=== PATIENT | female | born 1995 | race Caucasian/White ===

== ENCOUNTER 2016-06-26 16:23 | Emergency (ER) | payer OTHER ==
[2016-06-26] MEDS ORDERED: IBUPROFEN 400 MG TAB As Ordered ONE ×2 (18:28→18:32)
[2016-06-26] MEDS ORDERED: ACETAMINOPHEN 325 MG TAB As Ordered ONE ×2 (18:29→18:32)
--- NOTE | 2016-06-26 19:43 | EDDOCDS ---
Nurse's Notes [facility] Name: Aurora Healy Age: 21 yrs Sex: Female : 1995 Arrival Date: 06/26/2016 Time: 16:23 Bed TR7 Private MD: Diagnosis: Acute bronchitis Presentation: 06/26 16:31 Presenting complaint: Patient states: pt c/o productive cough x 2 days. Adult Sepsis ead Screening: The patient does not have new or worsening altered mentation. Patient's respiratory rate is less than 22. Systolic blood pressure is greater than 100. Patient has a qSOFA score of 0- Negative Sepsis Screen. Suicide/Homicide risk assessment- the patient denies having any suicidal and/or homicidal ideations and does not present with any other emotional, behavioral or mental health complaints. Status: Patient is not a procurement services manager or dependent. Transition of care: patient was not received from another setting of care. 16:31 Acuity: JENNIFER Level 4 ead 16:31 Method Of Arrival: Walkin/Carried/Asstd ead Triage Assessment: 16:33 General: Appears in no apparent distress, Behavior is appropriate for age, cooperative. ead Pain: Location: chest Pain currently is 8 out of 10 on a pain scale. Neurological: No deficits noted. Respiratory: Airway is patent Respiratory effort is even, unlabored, Reports cough that is pain with cough. Derm: Skin is pink, warm & dry. 19:26 Pt Declines HIV testing. 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 none - PMHx: none; - PSHx: none; - Social history: Smoking status: Patient states was never smoker of tobacco. No barriers to communication noted, The patient speaks fluent Romanian, Speaks appropriately for age. - Family history: Not pertinent. - : The pt / caregiver states he / she is not on anticoagulants. Home medication list is obtained from the patient. - Exposure Risk Screening:: None identified. Screenin:41 Screening information is obtained from the patient. Fall risk: No risks identified. dsf Assistance ADL's: requires no assistance with activities of daily living. Abuse/DV Screen: The patient / caregiver reports he/she is: not in a situation that causes fear, pain or injury. Nutritional screening: No deficits noted. Advance Directives: Currently, there is no health care proxy. home support is adequate. Assessment: 19:26 Adult Sepsis Screening: The patient does not have new or worsening altered mentation. dsf Patient's respiratory rate is less than 22. Systolic blood pressure is greater than 100. Patient has a qSOFA score of 0- Negative Sepsis Screen. General: Appears in no apparent distress, Behavior is appropriate for age, cooperative. Pain: Location: chest Pain currently is 6 out of 10 on a pain scale. Neurological: Level of Consciousness is awake, alert. Cardiovascular: Capillary refill < 3 seconds. Respiratory: Airway is patent Respiratory effort is even, unlabored, Respiratory pattern is regular, symmetrical. Derm: Skin is pink, warm & dry. Vital Signs: 16:24 BP 116 / 73; Pulse 107; Resp 19; Temp 101.1(O); Pulse Ox 99% on R/A; Weight 57.61 kg lr2 (R); Height 5 ft. (152.40 cm) (R); Pain 3/10; 19:18 Temp 99.0(O); dsf 19:26 BP 108 / 59; Pulse 91; Resp 20; Pulse Ox 98% on R/A; Pain 6/10; dsf 16:24 Body Mass Index 24.80 (57.61 kg, 152.40 cm) lr2 Vitals: 16:24 Log In Time: June 26, 2016 at 16:23. lr2 ED Course: 16:24 Patient visited by Mariola Meeks. lr2 16:24 Patient moved to Waiting lr2 16:26 Patient moved to Pre RCE lr2 16:32 Triage Initiated ead 18:03 Patient moved to Triage 3 ar3 18:12 [facility]-C [facility] ck7 18:12 Moy Roman MD is Attending Physician. ck7 18:12 Patient visited by Jerald Carlson RPA-C. ck7 18:31 -Influenza A&B Rapid Antigen - Nose Sent. ar3 18:34 Patient moved to TR2 dsf 18:46 Patient visited by Jerald Carlson RPA-C. ck7 19:16 Patient visited by Jerald Carlson RPA-C. ck7 19:16 Patient moved to PR1 / 25 dsf 19:26 Patient moved to TR7 dsf 19:26 The patient / caregiver is instructed regarding the plan of care and ED course. dsf 19:26 No IV's were initiated during this patient's visit. No procedures done that require dsf assistance. Administered Medications: 18:34 Drug: Ibuprofen 400 mg [ibuprofen 400 mg tablet (1 tabs)] Route: PO; dsf 18:34 Drug: Acetaminophen 650 mg [acetaminophen 325 mg tablet (2 tabs)] Route: PO; dsf Order Results: Lab Order: -Influenza A&B Rapid Antigen - Nose; SPEC'M 06/26/16 18:31 Test: INFLUENZA A RAPID SCR by ICA; Value: INFLUENZA A RESULTS NEGATIVE; Status: F Test: INFLUENZA A RAPID SCR by ICA; Value: Comments:; Status: F Test: INFLUENZA B RAPID SCR by ICA; Value: INFLUENZA B RESULTS NEGATIVE; Status: F Test Note: ; The Influenza test is a direct rapid immunoassay for the qualitative detection of Influenza viral antigen. Cell culture (Viral Culture) testing should be considered to confirm NEGATIVE results and to assist in detecting other viruses that can provide similar clinical symptoms. Please contact the lab within 24 hours ([phone]) if confirmatory testing is desired. Outcome: 19:19 Discharge ordered by Provider. ck7 19:26 Discharge Assessment: Patient awake, alert and oriented x 3. No cognitive and/or dsf functional deficits noted. Patient verbalized understanding of disposition instructions. patient administered narcotics - no. The following High Risk Discharge criteria are identified: None. Discharged to home ambulatory. Condition: stable. Discharge instructions given to patient, Instructed on discharge instructions, follow up and referral plans. medication usage, Demonstrated understanding of instructions, medications, Pt was receptive of discharge instructions/ teaching. Prescriptions given X 2. No special radiology studies were completed. Property sent home with patient. 19:43 Patient left the ED. dsf Signatures: Joan oHu, SIGNALS INTELLIGENCE ANALYST SIGNALS INTELLIGENCE ANALYST ar3 Quin Ortega RN RN dsf Jerald Carlson, RPA-C RPA-Cck7 Dulce Resendez RN RN ead Ross, Laura lr2 MTDD
--- NOTE | 2016-06-26 19:43 | EDDOCDS ---
Physician Documentation [facility] Name: Aurora Healy Age: 21 yrs Sex: Female : 1995 Arrival Date: 06/26/2016 Time: 16:23 Bed TR7 Private MD: Disposition: 06/26/16 19:19 Discharged to Home/Self Care. Impression: Acute bronchitis. - Condition is Stable. - Discharge Instructions: Acute Bronchitis. - Prescriptions for Doxycycline Hyclate 100 mg Oral Tablet - take 1 tablet by ORAL route every 12 hours; 20 tablet. benzonatate 200 mg Oral Capsule - take 1 capsule by ORAL route 3 times per day As needed; 30 capsule. - Medication Reconciliation, Local Pharmacy Hours form. - Follow up: Private Physician; When: 2 - 3 days; Reason: Recheck today's complaints, Continuance of care. - Problem is new. - Symptoms have improved. - Notes: USE MEDICATIONS INSTRUCTED, USE TYLENOL OR MOTRIN FOR FEVER CONTROL, FOLLOW UP WITH YOUR DOCTOR IN 2-3 DAYS, RETURN TO THE ER IF THE SYMPTOMS WORSEN OR BECOME CONCERNING Historical: - Allergies: Amoxicillin; - Home Meds: 1. none - PMHx: none; - PSHx: none; - Social history: Smoking status: Patient states was never smoker of tobacco. No barriers to communication noted, The patient speaks fluent [place], Speaks appropriately for age. - Family history: Not pertinent. - : The pt / caregiver states he / she is not on anticoagulants. Home medication list is obtained from the patient. - Exposure Risk Screening:: None identified. 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 (152.40 cm) (R); Pain 3/10; 19:18 Temp 99.0(O); dsf 19:26 BP 108 / 59; Pulse 91; Resp 20; Pulse Ox 98% on R/A; Pain 6/10; dsf 16:24 Body Mass Index 24.80 (57.61 kg, 152.40 cm) lr2 MDM: 17:56 Chest, 2 View (pa\E\lat) Ordered. EDMS 18:26 Ibuprofen 400 mg PO once ordered. ck7 18:26 Acetaminophen Tablet 650 mg PO once ordered. ck7 18:26 Obtain sample by nasopharyngeal swab ordered. ck7 18:27 -Influenza A&B Rapid Antigen - Nose Ordered. EDMS 18:39 Financial registration complete. gjb 19:08 -Influenza A&B Rapid Antigen - Nose Reviewed. ck7 19:17 Recheck Vital Signs, perform reassessment and enter into [employer] ordered. ck7 Administered Medications: 18:34 Drug: Ibuprofen 400 mg [ibuprofen 400 mg tablet (1 tabs)] Route: PO; dsf 18:34 Drug: Acetaminophen 650 mg [acetaminophen 325 mg tablet (2 tabs)] Route: PO; dsf Signatures: Dispatcher [employer] EDQuin Liu,RN RN dsJerald Gallardo, RPA-C RPA-Cck7 Dulce Resendez,RN RN Justine Quintana MTDD
--- NOTE | 2016-06-27 06:39 | REP ---
Chest x-ray: Two views. History: Cough. Findings: The lungs are well inflated and clear. Pleural angles are sharp. Heart size is normal. No significant bony abnormality is seen. Impression: Negative chest x-ray. Signed by Mian Warren MD 06/27/2016 08:29 A
--- NOTE | 2016-06-28 20:44 | EDDOCDS ---
Physician Documentation [facility] Name: Aurora Healy Age: 21 yrs Sex: Female : 1995 Arrival Date: 06/26/2016 Time: 16:23 Bed TR7 Private MD: Disposition: 06/26/16 19:19 Discharged to Home/Self Care. Impression: Acute bronchitis. - Condition is Stable. - Discharge Instructions: Acute Bronchitis. - Prescriptions for Doxycycline Hyclate 100 mg Oral Tablet - take 1 tablet by ORAL route every 12 hours; 20 tablet. benzonatate 200 mg Oral Capsule - take 1 capsule by ORAL route 3 times per day As needed; 30 capsule. - Medication Reconciliation, Local Pharmacy Hours form. - Follow up: Private Physician; When: 2 - 3 days; Reason: Recheck today's complaints, Continuance of care. - Problem is new. - Symptoms have improved. - Notes: USE MEDICATIONS INSTRUCTED, USE TYLENOL OR MOTRIN FOR FEVER CONTROL, FOLLOW UP WITH YOUR DOCTOR IN 2-3 DAYS, RETURN TO THE ER IF THE SYMPTOMS WORSEN OR BECOME CONCERNING Historical: - Allergies: Amoxicillin; - Home Meds: 1. none - PMHx: none; - PSHx: none; - Social history: Smoking status: Patient states was never smoker of tobacco. No barriers to communication noted, The patient speaks fluent [place], Speaks appropriately for age. - Family history: Not pertinent. - : The pt / caregiver states he / she is not on anticoagulants. Home medication list is obtained from the patient. - Exposure Risk Screening:: None identified. 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 (152.40 cm) (R); Pain 3/10; 19:18 Temp 99.0(O); dsf 19:26 BP 108 / 59; Pulse 91; Resp 20; Pulse Ox 98% on R/A; Pain 6/10; dsf 16:24 Body Mass Index 24.80 (57.61 kg, 152.40 cm) lr2 MDM: 17:56 Chest, 2 View (pa\E\lat) Ordered. EDMS 18:26 Ibuprofen 400 mg PO once ordered. ck7 18:26 Acetaminophen Tablet 650 mg PO once ordered. ck7 18:26 Obtain sample by nasopharyngeal swab ordered. ck7 18:27 -Influenza A&B Rapid Antigen - Nose Ordered. EDMS 18:39 Financial registration complete. gjb 19:08 -Influenza A&B Rapid Antigen - Nose Reviewed. ck7 19:17 Recheck Vital Signs, perform reassessment and enter into [employer] ordered. ck7 20:42 [facility] Payment Agreement was scanned into [employer] and attached to record. gjb Administered Medications: 18:34 Drug: Ibuprofen 400 mg [ibuprofen 400 mg tablet (1 tabs)] Route: PO; dsf 18:34 Drug: Acetaminophen 650 mg [acetaminophen 325 mg tablet (2 tabs)] Route: PO; dsf Signatures: Dispatcher [employer] EDuQin Liu RN RN dsf Kwaczala, Christopher, RPA-C RPA-Cck7 Dulce ResendezRN Justine King The chart was reviewed and I authenticate all verbal orders and agree with the evaluation and treatment provided.Attachments: 20:42 [facility] Payment Agreement gjb Chart Complete MTDD
--- NOTE | 2016-06-28 20:44 | EDDOCDS ---
Nurse's Notes [facility] Name: Aurora Healy Age: 21 yrs Sex: Female : 1995 Arrival Date: 06/26/2016 Time: 16:23 Bed TR7 Private MD: Diagnosis: Acute bronchitis Presentation: 06/26 16:31 Presenting complaint: Patient states: pt c/o productive cough x 2 days. Adult Sepsis ead Screening: The patient does not have new or worsening altered mentation. Patient's respiratory rate is less than 22. Systolic blood pressure is greater than 100. Patient has a qSOFA score of 0- Negative Sepsis Screen. Suicide/Homicide risk assessment- the patient denies having any suicidal and/or homicidal ideations and does not present with any other emotional, behavioral or mental health complaints. Status: Patient is not a service order taker or dependent. Transition of care: patient was not received from another setting of care. 16:31 Acuity: JENNIFER Level 4 ead 16:31 Method Of Arrival: Walkin/Carried/Asstd ead Triage Assessment: 16:33 General: Appears in no apparent distress, Behavior is appropriate for age, cooperative. ead Pain: Location: chest Pain currently is 8 out of 10 on a pain scale. Neurological: No deficits noted. Respiratory: Airway is patent Respiratory effort is even, unlabored, Reports cough that is pain with cough. Derm: Skin is pink, warm & dry. 19:26 Pt Declines HIV testing. 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 none - PMHx: none; - PSHx: none; - Social history: Smoking status: Patient states was never smoker of tobacco. No barriers to communication noted, The patient speaks fluent Spanish, Speaks appropriately for age. - Family history: Not pertinent. - : The pt / caregiver states he / she is not on anticoagulants. Home medication list is obtained from the patient. - Exposure Risk Screening:: None identified. Screenin:41 Screening information is obtained from the patient. Fall risk: No risks identified. dsf Assistance ADL's: requires no assistance with activities of daily living. Abuse/DV Screen: The patient / caregiver reports he/she is: not in a situation that causes fear, pain or injury. Nutritional screening: No deficits noted. Advance Directives: Currently, there is no health care proxy. home support is adequate. Assessment: 19:26 Adult Sepsis Screening: The patient does not have new or worsening altered mentation. dsf Patient's respiratory rate is less than 22. Systolic blood pressure is greater than 100. Patient has a qSOFA score of 0- Negative Sepsis Screen. General: Appears in no apparent distress, Behavior is appropriate for age, cooperative. Pain: Location: chest Pain currently is 6 out of 10 on a pain scale. Neurological: Level of Consciousness is awake, alert. Cardiovascular: Capillary refill < 3 seconds. Respiratory: Airway is patent Respiratory effort is even, unlabored, Respiratory pattern is regular, symmetrical. Derm: Skin is pink, warm & dry. Vital Signs: 16:24 BP 116 / 73; Pulse 107; Resp 19; Temp 101.1(O); Pulse Ox 99% on R/A; Weight 57.61 kg lr2 (R); Height 5 ft. (152.40 cm) (R); Pain 3/10; 19:18 Temp 99.0(O); dsf 19:26 BP 108 / 59; Pulse 91; Resp 20; Pulse Ox 98% on R/A; Pain 6/10; dsf 16:24 Body Mass Index 24.80 (57.61 kg, 152.40 cm) lr2 Vitals: 16:24 Log In Time: June 26, 2016 at 16:23. lr2 ED Course: 16:24 Patient visited by Mariola Meeks. lr2 16:24 Patient moved to Waiting lr2 16:26 Patient moved to Pre RCE lr2 16:32 Triage Initiated ead 18:03 Patient moved to Triage 3 ar3 18:12 [facility]erald Carlson R[facility]-C [facility] ck7 18:12 Moy Roman MD is Attending Physician. ck7 18:12 Patient visited by Jerald Carlson RPA-C. ck7 18:31 -Influenza A&B Rapid Antigen - Nose Sent. ar3 18:34 Patient moved to TR2 dsf 18:46 Patient visited by Jerald Carlson RPA-C. ck7 19:16 Patient visited by Jerald Carlson RPA-C. ck7 19:16 Patient moved to PR1 / 25 dsf 19:26 Patient moved to TR7 dsf 19:26 The patient / caregiver is instructed regarding the plan of care and ED course. dsf 19:26 No IV's were initiated during this patient's visit. No procedures done that require dsf assistance. 20:04 Patient name changed from [place]\S\\S\[place]\S\ to [place]\S\ \S\[place]oot[place]. EDMS 20:42 [facility] Payment Agreement was scanned into [employer] and attached to record. [facility] 06/27 06:44 Chest, 2 View (pa\E\lat) Returned. EDMS Administered Medications: 06/26 18:34 Drug: Ibuprofen 400 mg [ibuprofen 400 mg tablet (1 tabs)] Route: PO; dsf 18:34 Drug: Acetaminophen 650 mg [acetaminophen 325 mg tablet (2 tabs)] Route: PO; dsf Order Results: Lab Order: -Influenza A&B Rapid Antigen - Nose; SPEC'M 06/26/16 18:31 Test: INFLUENZA A RAPID SCR by ICA; Value: INFLUENZA A RESULTS NEGATIVE; Status: F Test: INFLUENZA A RAPID SCR by ICA; Value: Comments:; Status: F Test: INFLUENZA B RAPID SCR by ICA; Value: INFLUENZA B RESULTS NEGATIVE; Status: F Test Note: ; The Influenza test is a direct rapid immunoassay for the qualitative detection of Influenza viral antigen. Cell culture (Viral Culture) testing should be considered to confirm NEGATIVE results and to assist in detecting other viruses that can provide similar clinical symptoms. Please contact the lab within 24 hours ([phone]) if confirmatory testing is desired. Radiology Order: Chest, 2 View (pa\E\lat) Test: Chest, 2 View (pa\E\lat) REASON FOR EXAMINATION: Cough; Chest x-ray: Two views.; ; History: Cough.; ; Findings: The lungs are well inflated and clear. Pleural angles are sharp.; Heart size is normal. No significant bony abnormality is seen.; ; Impression:; ; Negative chest x-ray.; ; ; Signed by; Mian Warren MD 06/27/2016 08:29 A; Outcome: 19:19 Discharge ordered by Provider. ck7 19:26 Discharge Assessment: Patient awake, alert and oriented x 3. No cognitive and/or dsf functional deficits noted. Patient verbalized understanding of disposition instructions. patient administered narcotics - no. The following High Risk Discharge criteria are identified: None. Discharged to home ambulatory. Condition: stable. Discharge instructions given to patient, Instructed on discharge instructions, follow up and referral plans. medication usage, Demonstrated understanding of instructions, medications, Pt was receptive of discharge instructions/ teaching. Prescriptions given X 2. No special radiology studies were completed. Property sent home with patient. 19:43 Patient left the ED. dsf Signatures: Dispatcher [employer] EDMS Joan Hou, COMPUTER SUPPORT ANALYST COMPUTER SUPPORT ANALYST ar3 Quin Ortega,RN RN dsf Jerald Carlson, RPA-C RPA-Cck7 Dulce Resendez,RN RN Justine Quintana Laura lr2 Chart Complete DIVYA
--- NOTE | 2016-06-28 20:44 | EDDOCDS ---
Physician Documentation [facility] Name: Aurora Healy Age: 21 yrs Sex: Female : 1995 Arrival Date: 06/26/2016 Time: 16:23 Bed TR7 Private MD: Disposition: 06/26/16 19:19 Discharged to Home/Self Care. Impression: Acute bronchitis. - Condition is Stable. - Discharge Instructions: Acute Bronchitis. - Prescriptions for Doxycycline Hyclate 100 mg Oral Tablet - take 1 tablet by ORAL route every 12 hours; 20 tablet. benzonatate 200 mg Oral Capsule - take 1 capsule by ORAL route 3 times per day As needed; 30 capsule. - Medication Reconciliation, Local Pharmacy Hours form. - Follow up: Private Physician; When: 2 - 3 days; Reason: Recheck today's complaints, Continuance of care. - Problem is new. - Symptoms have improved. - Notes: USE MEDICATIONS INSTRUCTED, USE TYLENOL OR MOTRIN FOR FEVER CONTROL, FOLLOW UP WITH YOUR DOCTOR IN 2-3 DAYS, RETURN TO THE ER IF THE SYMPTOMS WORSEN OR BECOME CONCERNING Historical: - Allergies: Amoxicillin; - Home Meds: 1. none - PMHx: none; - PSHx: none; - Social history: Smoking status: Patient states was never smoker of tobacco. No barriers to communication noted, The patient speaks fluent Martiniquais, Speaks appropriately for age. - Family history: Not pertinent. - : The pt / caregiver states he / she is not on anticoagulants. Home medication list is obtained from the patient. - Exposure Risk Screening:: None identified. 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 (152.40 cm) (R); Pain 3/10; 19:18 Temp 99.0(O); dsf 19:26 BP 108 / 59; Pulse 91; Resp 20; Pulse Ox 98% on R/A; Pain 6/10; dsf 16:24 Body Mass Index 24.80 (57.61 kg, 152.40 cm) lr2 MDM: 17:56 Chest, 2 View (pa\E\lat) Ordered. EDMS 18:26 Ibuprofen 400 mg PO once ordered. ck7 18:26 Acetaminophen Tablet 650 mg PO once ordered. ck7 18:26 Obtain sample by nasopharyngeal swab ordered. ck7 18:27 -Influenza A&B Rapid Antigen - Nose Ordered. EDMS 18:39 Financial registration complete. gjb 19:08 -Influenza A&B Rapid Antigen - Nose Reviewed. ck7 19:17 Recheck Vital Signs, perform reassessment and enter into [email or web address] ordered. ck7 20:42 [facility] Payment Agreement was scanned into [employer] and attached to record. gjb Administered Medications: 18:34 Drug: Ibuprofen 400 mg [ibuprofen 400 mg tablet (1 tabs)] Route: PO; dsf 18:34 Drug: Acetaminophen 650 mg [acetaminophen 325 mg tablet (2 tabs)] Route: PO; dsf Signatures: Dispatcher [employer] EDQuin Liu RN RN dsf Kwaczala, Christopher, RPA-C RPA-Cck7 Dulce ResendezRN Justine King The chart was reviewed and I authenticate all verbal orders and agree with the evaluation and treatment provided.Attachments: 20:42 [facility] Payment Agreement gjb Chart Complete MTDD
== END 2016-06-26 19:43 | disposition home or self-care (01) ==
LOC: M ED 16:23
DX: J20.9 Acute bronchitis, unspecified (principal); Z88.1 Allergy status to other antibiotic agents

== ENCOUNTER 2016-09-28 12:28 | Emergency (ER) | payer OTHER ==
[~2016-09-28] VITALS: Ht 152.4 cm; Wt 50.3 kg
[2016-09-28 13:59] LABS: CONTROL LINE HCG INT CTR LINE PRESENT
[2016-09-28 14:13] LABS: METHADONE URINE NEGATIVE (NEGATIVE)
[2016-09-28 14:15] LABS: MEAN CORPUSCULAR HEMOGLOBIN 32.6 pg (27.0-33.0); MEAN CORPUSCULAR VOLUME 98.7 fl (80.0-96.0); RED CELL DISTRIBUTION WIDTH 13.3 % (11.5-14.5); WHITE BLOOD COUNT 9.8 K/mm3 (4.0-10.0)
[2016-09-28 14:18] LABS: ALBUMIN 3.8 GM/DL (3.2-5.2); ALBUMIN/GLOBULIN RATIO 1.09 (1.00-1.93); ALKALINE PHOSPHATASE 33 U/L (45-117); ALT/SGPT 19 U/L (12-78); ANION GAP 9 MEQ/L (8-16); AST/SGOT 21 U/L (15-37); BILIRUBIN,DIRECT 0.2 MG/DL (0.0-0.2); BILIRUBIN,TOTAL 0.6 MG/DL (0.2-1.0); BLOOD UREA NITROGEN 13 MG/DL (7-18); CALCIUM LEVEL 9.2 MG/DL (8.5-10.1); CARBON DIOXIDE LEVEL 30 MEQ/L (21-32); CHLORIDE LEVEL 103 MEQ/L (98-107); CREATININE FOR GFR 0.87 MG/DL (0.55-1.02); GLOMERULAR FILTRATION RATE > 60.0 (>60); GLUCOSE, FASTING 77 MG/DL (70-105); POTASSIUM SERUM 4.1 MEQ/L (3.5-5.1); SODIUM LEVEL 142 MEQ/L (136-145); TOTAL PROTEIN 7.3 GM/DL (6.4-8.2)
[2016-09-28 14:50] VITALS: BP 128/74
== END 2016-09-28 14:57 | disposition home or self-care (01) ==
LOC: M ED 13:21
DX: F43.0 Acute stress reaction (principal); X78.9XXA Intentional self-harm by unspecified sharp object, initial encounter; Y92.9 Unspecified place or not applicable; Y93.9 Activity, unspecified; Y99.9 Unspecified external cause status; F17.200 Nicotine dependence, unspecified, uncomplicated; Z79.899 Other long term (current) drug therapy; Z88.0 Allergy status to penicillin

== ENCOUNTER 2016-10-05 22:40 | Emergency (ER) | payer OTHER ==
[~2016-10-05] VITALS: Ht 152.4 cm; Wt 52.2 kg
[2016-10-05 23:51] LABS: MEAN CORPUSCULAR HEMOGLOBIN 33.3 pg (27.0-33.0); MEAN CORPUSCULAR HGB CONC 33.8 g/dl (32.0-36.5); MEAN CORPUSCULAR VOLUME 98.5 fl (80.0-96.0); RED CELL DISTRIBUTION WIDTH 13.5 % (11.5-14.5); WHITE BLOOD COUNT 6.5 K/mm3 (4.0-10.0)
[2016-10-06 00:11] LABS: CONTROL LINE HCG INT CTR LINE PRESENT
[2016-10-06 00:11] LABS: METHADONE URINE NEGATIVE (NEGATIVE)
[2016-10-06 00:20] LABS: ALBUMIN 3.8 GM/DL (3.2-5.2); ALBUMIN/GLOBULIN RATIO 1.06 (1.00-1.93); ALKALINE PHOSPHATASE 33 U/L (45-117); ALT/SGPT 26 U/L (12-78); ANION GAP 8 MEQ/L (8-16); AST/SGOT 27 U/L (15-37); BILIRUBIN,DIRECT 0.2 MG/DL (0.0-0.2); BILIRUBIN,TOTAL 0.5 MG/DL (0.2-1.0); BLOOD UREA NITROGEN 12 MG/DL (7-18); CALCIUM LEVEL 8.5 MG/DL (8.5-10.1); CARBON DIOXIDE LEVEL 26 MEQ/L (21-32); CHLORIDE LEVEL 107 MEQ/L (98-107); CREATININE FOR GFR 0.81 MG/DL (0.55-1.02); GLOMERULAR FILTRATION RATE > 60.0 (>60); GLUCOSE, FASTING 71 MG/DL (70-105); POTASSIUM SERUM 3.2 MEQ/L (3.5-5.1); SODIUM LEVEL 141 MEQ/L (136-145); TOTAL PROTEIN 7.4 GM/DL (6.4-8.2)
[2016-10-06 16:27] VITALS: BP 125/72
== END 2016-10-06 16:44 | disposition home or self-care (01) ==
LOC: M ED 22:40
DX: F43.20 Adjustment disorder, unspecified (principal); F32.9 Major depressive disorder, single episode, unspecified; Z88.1 Allergy status to other antibiotic agents

== ENCOUNTER 2016-10-08 03:19 | Inpatient (IN) | payer OTHER ==
[~2016-10-08] VITALS: Ht 152.4 cm; Wt 51.6 kg
[2016-10-08 04:41] LABS: MEAN CORPUSCULAR HEMOGLOBIN 33.7 pg (27.0-33.0); MEAN CORPUSCULAR HGB CONC 34.5 g/dl (32.0-36.5); MEAN CORPUSCULAR VOLUME 97.6 fl (80.0-96.0); RED CELL DISTRIBUTION WIDTH 13.5 % (11.5-14.5); WHITE BLOOD COUNT 5.8 K/mm3 (4.0-10.0)
[2016-10-08 04:59] LABS: METHADONE URINE NEGATIVE (NEGATIVE)
[2016-10-08 05:08] LABS: CONTROL LINE HCG INT CTR LINE PRESENT
[2016-10-08 05:11] LABS: ALBUMIN 3.6 GM/DL (3.2-5.2); ALBUMIN/GLOBULIN RATIO 1.16 (1.00-1.93); ALKALINE PHOSPHATASE 31 U/L (45-117); ALT/SGPT 23 U/L (12-78); ANION GAP 12 MEQ/L (8-16); AST/SGOT 24 U/L (15-37); BILIRUBIN,DIRECT < 0.1 MG/DL (0.0-0.2); BILIRUBIN,TOTAL 0.4 MG/DL (0.2-1.0); BLOOD UREA NITROGEN 9 MG/DL (7-18); CARBON DIOXIDE LEVEL 25 MEQ/L (21-32); CHLORIDE LEVEL 107 MEQ/L (98-107); CREATININE FOR GFR 0.64 MG/DL (0.55-1.02); GLOMERULAR FILTRATION RATE > 60.0 (>60); GLUCOSE, FASTING 77 MG/DL (70-105); POTASSIUM SERUM 3.3 MEQ/L (3.5-5.1); SODIUM LEVEL 144 MEQ/L (136-145); TOTAL PROTEIN 6.7 GM/DL (6.4-8.2)
[2016-10-08] MEDS ORDERED: POTASSIUM CHLORIDE 10% LIQ 20 MEQ/15 ML UDC PO ONE (11:15)
--- NOTE | 2016-10-08 12:05 | REP ---
Two wall may see CT of the brain without IV contrast: There are no comparison studies. There is a tiny linear density in the scalp overlying the frontal bone on image 202, possibly a tiny foreign body. However, there is no adjacent soft tissue edema. This may not be acute. There is no subdural or epidural hematoma. There is no edema, mass effect or midline shift. Cortical stripe is unremarkable. Ventricles are normal size and midline. Impression: Negative CT study of the brain. There is a tiny linear density in the frontal scalp, as discussed, possibly a tiny foreign body. Signed by Larry Livingston MD 10/08/2016 11:56 A
[2016-10-08] MEDS ORDERED: ACETAMINOPHEN TAB 650MG DOSE (2X325MG) PO ONE (12:45)
[2016-10-08 12:55] VITALS: BP 105/69
[2016-10-08] MEDS ORDERED: traZODone 50 MG TAB PO PRN (15:30)
[2016-10-08] MEDS ORDERED: MOM 30ML SUSPENSION UDC PO PRN (15:30)
[2016-10-08] MEDS ORDERED: OXAZEPAM 15 MG CAP PO PRN (15:30)
[2016-10-08] MEDS ORDERED: MAALOX 30 ML SUSP *UDC PO PRN (15:30)
[2016-10-08] MEDS ORDERED: OLANZapine ORAL DISINTEGRATING TAB 5MG PO PRN (15:30)
[2016-10-08] MEDS: FOLIC ACID 1 MG TAB PO SCH (16:00)
[2016-10-08] MEDS: THIAMINE 100 MG TAB PO SCH ×2 (16:00→21:35)
[2016-10-08] MEDS: ACETAMINOPHEN TAB 650MG DOSE (2X325MG) PO PRN (16:21)
[2016-10-08] MEDS: NICOTINE 21MG/24HR 1 EA TRANSDERMAL TD SCH (16:21)
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
[2016-10-09 06:28] VITALS: BP 130/63
[2016-10-09] MEDS: MULTIVITAMINS/MINERALS THERAP 1 TAB PO SCH (08:49)
[2016-10-09] MEDS: THIAMINE 100 MG TAB PO SCH ×2 (08:49→20:59)
[2016-10-09] MEDS: FOLIC ACID 1 MG TAB PO SCH (08:49)
[2016-10-09] MEDS: NICOTINE 21MG/24HR 1 EA TRANSDERMAL TD SCH (08:50)
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
[2016-10-09 11:52] VITALS: BP 130/63
[2016-10-09 12:00] VITALS: BP 122/70
[2016-10-09 18:00] VITALS: BP 100/54
[2016-10-09] MEDS: ACETAMINOPHEN TAB 650MG DOSE (2X325MG) PO PRN (20:59)
[2016-10-09] MEDS: QUEtiapine FUMARATE 50 MG TAB PO SCH (20:59)
[2016-10-10 06:08] VITALS: BP 95/48
[2016-10-10] MEDS: FOLIC ACID 1 MG TAB PO SCH (08:50)
[2016-10-10] MEDS: THIAMINE 100 MG TAB PO SCH ×2 (08:50→20:16)
[2016-10-10] MEDS: MULTIVITAMINS/MINERALS THERAP 1 TAB PO SCH (08:50)
[2016-10-10] MEDS: NICOTINE 21MG/24HR 1 EA TRANSDERMAL TD SCH (08:50)
[2016-10-10 11:47] VITALS: BP 107/59
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
[2016-10-10 18:24] VITALS: BP 110/60
[2016-10-10] MEDS: QUEtiapine FUMARATE 50 MG TAB PO SCH (20:16)
[2016-10-10] MEDS: ACETAMINOPHEN TAB 650MG DOSE (2X325MG) PO PRN (20:17)
--- NOTE | 2016-10-11 05:56 | ECGEPIP ---
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
[2016-10-11 06:22] VITALS: BP 94/53
[2016-10-11 07:43] LABS: ANION GAP 3 MEQ/L (8-16); BLOOD UREA NITROGEN 13 MG/DL (7-18); CALCIUM LEVEL 9.1 MG/DL (8.5-10.1); CARBON DIOXIDE LEVEL 32 MEQ/L (21-32); CHLORIDE LEVEL 101 MEQ/L (98-107); CREATININE FOR GFR 0.71 MG/DL (0.55-1.02); GLOMERULAR FILTRATION RATE > 60.0 (>60); GLUCOSE, FASTING 84 MG/DL (70-105); POTASSIUM SERUM 4.5 MEQ/L (3.5-5.1); SODIUM LEVEL 136 MEQ/L (136-145)
[2016-10-11] MEDS: MULTIVITAMINS/MINERALS THERAP 1 TAB PO SCH (08:25)
[2016-10-11] MEDS: NICOTINE 21MG/24HR 1 EA TRANSDERMAL TD SCH (08:25)
[2016-10-11] MEDS: FOLIC ACID 1 MG TAB PO SCH (08:25)
[2016-10-11 12:31] VITALS: BP 115/71
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
[2016-10-11 18:10] VITALS: BP 109/59
[2016-10-11] MEDS: ACETAMINOPHEN TAB 650MG DOSE (2X325MG) PO PRN (18:13)
[2016-10-11] MEDS: QUEtiapine FUMARATE 100 MG TAB PO SCH (20:33)
[2016-10-11 23:03] LABS: CONTROL LINE UCG INT CTR LINE PRESENT
[2016-10-12 06:43] VITALS: BP 102/57
[2016-10-12] MEDS: NICOTINE 21MG/24HR 1 EA TRANSDERMAL TD SCH (08:47)
[2016-10-12] MEDS: MULTIVITAMINS/MINERALS THERAP 1 TAB PO SCH (08:47)
[2016-10-12] MEDS: FOLIC ACID 1 MG TAB PO SCH (08:47)
[2016-10-12 18:00] VITALS: BP 106/56
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
[2016-10-12] MEDS: ACETAMINOPHEN TAB 650MG DOSE (2X325MG) PO PRN (20:12)
[2016-10-12] MEDS: QUEtiapine FUMARATE 100 MG TAB PO SCH (20:13)
[2016-10-13 06:40] VITALS: BP 96/52
[2016-10-13] MEDS: FOLIC ACID 1 MG TAB PO SCH (08:55)
[2016-10-13] MEDS: NICOTINE 21MG/24HR 1 EA TRANSDERMAL TD SCH (08:56)
[2016-10-13] MEDS: MULTIVITAMINS/MINERALS THERAP 1 TAB PO SCH (08:56)
[2016-10-13] MEDS ORDERED: QUET1TAB8 PO (11:17)
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
== END 2016-10-13 11:35 | disposition home or self-care (01) | DRG 753 ==
LOC: M ED 03:52 → M ED INP 10:02 → M PSY 12:41
PROVIDERS: ADMIT Psychiatry & Neurology Psychiatry; ATTEND Psychiatry & Neurology Psychiatry
DX: F31.9 Bipolar disorder, unspecified (principal); F10.10 Alcohol abuse, uncomplicated; F19.94 Other psychoactive substance use, unspecified with psychoactive substance-induced mood disorder; Z63.4 Disappearance and death of family member; Z88.0 Allergy status to penicillin; F17.200 Nicotine dependence, unspecified, uncomplicated

== ENCOUNTER 2016-11-05 15:25 | Emergency (ER) | payer OTHER ==
[~2016-11-05] VITALS: Ht 152.4 cm; Wt 52.3 kg
[~2016-11-05 15:25] MED LIST: QUET1TAB8 PO
[2016-11-05 15:27] VITALS: BP 138/78
[2016-11-06] MEDS ORDERED: RISP0.5T3 (08:30)
== END 2016-11-05 16:13 | disposition left against medical advice (07) ==
LOC: M ED 15:25
DX: Z20.2 Contact with and (suspected) exposure to infections with a predominantly sexual mode of transmission (principal); Z53.29 Procedure and treatment not carried out because of patient's decision for other reasons

== ENCOUNTER 2016-11-06 08:11 | Emergency (ER) | payer OTHER ==
[~2016-11-06] VITALS: Ht 152.4 cm; Wt 52.3 kg
[2016-11-06] MEDS ORDERED: RISP0.5T3 (08:30)
[2016-11-06] MEDS ORDERED: AZITHROMYCIN 250 MG TAB PO ONE (09:15)
[2016-11-06] MEDS ORDERED: cefTRIAXone SOD 250 MG VIAL (J0696) IM ONE (09:15)
[2016-11-06] MEDS ORDERED: LIDOCAINE 1% MDV 20ML VIAL As Ordered ONE (09:22)
[2016-11-06 09:38] VITALS: BP 112/71
== END 2016-11-06 09:41 | disposition home or self-care (01) ==
LOC: M ED 08:11
DX: Z20.2 Contact with and (suspected) exposure to infections with a predominantly sexual mode of transmission (principal); F17.200 Nicotine dependence, unspecified, uncomplicated; Z79.899 Other long term (current) drug therapy; Z88.0 Allergy status to penicillin

== ENCOUNTER → 2016-11-08 | Outpatient (CLI) | payer OTHER ==
[~2016-11-08] MED LIST changes: +RISP0.5T3
== END ==
LOC: M OUTALCOH 07:44
PROVIDERS: ATTEND Psychiatry & Neurology Psychiatry
DX: Z13.9 Encounter for screening, unspecified (principal); F11.20 Opioid dependence, uncomplicated; F14.20 Cocaine dependence, uncomplicated; F10.20 Alcohol dependence, uncomplicated

== ENCOUNTER → 2016-12-13 | Outpatient (CLI) | payer OTHER | LOC: M OUTALCOH 09:15 | PROVIDERS: ATTEND Psychiatry & Neurology Psychiatry | DX: F10.20 Alcohol dependence, uncomplicated (principal) ==

== ENCOUNTER → 2016-12-28 | Outpatient (RCR) | payer OTHER | LOC: M OUTALCOH 12-21 13:00 | PROVIDERS: ATTEND Psychiatry & Neurology Psychiatry | DX: F14.10 Cocaine abuse, uncomplicated (principal); F11.20 Opioid dependence, uncomplicated; F10.20 Alcohol dependence, uncomplicated ==

== ENCOUNTER 2017-01-17 08:45 | Outpatient (RCR) | payer OTHER | END 2017-01-27 | LOC: M OUTALCOH 08:45 | PROVIDERS: ATTEND Psychiatry & Neurology Psychiatry | DX: F10.20 Alcohol dependence, uncomplicated (principal); F11.20 Opioid dependence, uncomplicated; F14.10 Cocaine abuse, uncomplicated ==

== ENCOUNTER 2017-01-19 23:36 | Emergency (ER) | payer OTHER ==
[~2017-01-19] VITALS: Ht 152.4 cm; Wt 55.9 kg
[2017-01-20 00:18] LABS: MEAN CORPUSCULAR HEMOGLOBIN 34.2 pg (27.0-33.0); MEAN CORPUSCULAR HGB CONC 34.9 g/dl (32.0-36.5); MEAN CORPUSCULAR VOLUME 97.9 fl (80.0-96.0); RED CELL DISTRIBUTION WIDTH 13.3 % (11.5-14.5); WHITE BLOOD COUNT 5.3 K/mm3 (4.0-10.0)
[2017-01-20 00:38] LABS: CONTROL LINE HCG INT CTR LINE PRESENT
[2017-01-20 00:47] LABS: METHADONE URINE NEGATIVE (NEGATIVE)
[2017-01-20 00:55] LABS: ALBUMIN 3.8 GM/DL (3.2-5.2); ALBUMIN/GLOBULIN RATIO 1.06 (1.00-1.93); ALKALINE PHOSPHATASE 36 U/L (45-117); ALT/SGPT 17 U/L (12-78); ANION GAP 8 MEQ/L (8-16); AST/SGOT 17 U/L (15-37); BILIRUBIN,DIRECT 0.2 MG/DL (0.0-0.2); BILIRUBIN,TOTAL 0.7 MG/DL (0.2-1.0); BLOOD UREA NITROGEN 11 MG/DL (7-18); CALCIUM LEVEL 8.2 MG/DL (8.5-10.1); CARBON DIOXIDE LEVEL 26 MEQ/L (21-32); CHLORIDE LEVEL 108 MEQ/L (98-107); CREATININE FOR GFR 0.65 MG/DL (0.55-1.02); GLOMERULAR FILTRATION RATE > 60.0 (>60); GLUCOSE, FASTING 75 MG/DL (70-105); POTASSIUM SERUM 3.3 MEQ/L (3.5-5.1); SODIUM LEVEL 142 MEQ/L (136-145); TOTAL PROTEIN 7.4 GM/DL (6.4-8.2)
[2017-01-20] MEDS ORDERED: risperiDONE 2 MG TAB PO ONE (20:15)
[2017-01-20] MEDS ORDERED: QUEtiapine FUMARATE 100 MG TAB PO ONE (20:15)
[2017-01-20] MEDS ORDERED: risperiDONE 1 MG TAB PO ONE (20:15)
[2017-01-21 15:33] VITALS: BP 102/78
== END 2017-01-21 15:34 | disposition home or self-care (01) ==
LOC: M ED 01-20 09:59
DX: F32.9 Major depressive disorder, single episode, unspecified (principal); F10.129 Alcohol abuse with intoxication, unspecified; Z79.899 Other long term (current) drug therapy; Z88.0 Allergy status to penicillin

== ENCOUNTER 2017-03-28 08:00 | Outpatient (RCR) | payer OTHER | END 2017-03-29 | LOC: M OUTALCOH 08:00 | PROVIDERS: ATTEND Psychiatry & Neurology Psychiatry | DX: F10.20 Alcohol dependence, uncomplicated (principal); F11.20 Opioid dependence, uncomplicated; F14.10 Cocaine abuse, uncomplicated ==

== ENCOUNTER 2017-03-30 10:39 | Outpatient (RCR) | payer OTHER | END 2017-04-29 | LOC: M OUTALCOH 10:39 | DX: F10.20 Alcohol dependence, uncomplicated (principal); F11.20 Opioid dependence, uncomplicated; F14.10 Cocaine abuse, uncomplicated ==

== ENCOUNTER 2017-05-09 16:00 | Outpatient (RCR) | payer OTHER | END 2017-05-30 | LOC: M OUTALCOH 05-16 16:00 | DX: F10.20 Alcohol dependence, uncomplicated (principal); F11.20 Opioid dependence, uncomplicated; F14.10 Cocaine abuse, uncomplicated ==

== ENCOUNTER → 2017-05-24 | Outpatient (REF) | payer OTHER ==
[2017-05-24 14:05] LABS: HEMATOCRIT 33.2 % (36.0-47.0); HEMOGLOBIN 11.3 g/dl (12.0-16.0); MEAN CORPUSCULAR HEMOGLOBIN 31.6 pg (27.0-33.0); MEAN CORPUSCULAR VOLUME 92.7 fl (80.0-96.0); PLATELET COUNT, AUTOMATED 270 10^3/uL (150-450); RED BLOOD COUNT 3.58 10^6/uL (4.00-5.40); RED CELL DISTRIBUTION WIDTH 12.9 % (11.5-14.5); WHITE BLOOD COUNT 6.5 10^3/uL (4.0-10.0)
[2017-05-24 15:08] LABS: HCG, SERUM QUANTITATIVE 9885 MIU/ML
[2017-05-25 10:06] LABS: RUBELLA IgG QUALITATIVE IMMUNE (IMMUNE)
[2017-05-25 10:13] LABS: HBsAg Prenatal NEGATIVE (NEGATIVE)
[2017-05-25 10:35] LABS: HEPATITIS C VIRUS ABY INDEX < 0.0 INDEX (<0.8)
[2017-05-25 10:36] LABS: HIV 1&2 SCREEN CENTAUR NEGATIVE (NEGATIVE)
== END ==
LOC: M LAB REF 12:53
DX: O36.80X0 Pregnancy with inconclusive fetal viability, not applicable or unspecified (principal)
CPT/HCPCS: 84702

== ENCOUNTER 2017-06-01 11:25 | Outpatient (RCR) | payer OTHER | END 2017-06-27 | LOC: M OUTALCOH 11:25 | DX: F10.20 Alcohol dependence, uncomplicated (principal); F11.20 Opioid dependence, uncomplicated; F14.10 Cocaine abuse, uncomplicated ==

== ENCOUNTER 2017-07-05 13:01 | Outpatient (RCR) | payer OTHER | END 2017-07-28 | LOC: M OUTALCOH 13:01 | DX: F10.20 Alcohol dependence, uncomplicated (principal); F11.20 Opioid dependence, uncomplicated; F14.10 Cocaine abuse, uncomplicated ==

== ENCOUNTER → 2017-07-05 | Outpatient (REF) | payer OTHER | LOC: M LAB REF 12:46 | DX: Z34.81 Encounter for supervision of other normal pregnancy, first trimester (principal); Z3A.11 11 weeks gestation of pregnancy | CPT/HCPCS: 87086 ==

== ENCOUNTER 2017-08-01 09:12 | Outpatient (RCR) | payer OTHER | END 2017-08-27 | LOC: M OUTALCOH 08-03 08:45 | DX: F10.20 Alcohol dependence, uncomplicated (principal); F11.20 Opioid dependence, uncomplicated; F14.10 Cocaine abuse, uncomplicated ==

== ENCOUNTER 2017-08-28 10:21 | Outpatient (RCR) | payer OTHER | END 2017-09-27 | LOC: M OUTALCOH 10:21 | DX: F10.20 Alcohol dependence, uncomplicated (principal); F11.20 Opioid dependence, uncomplicated; F14.10 Cocaine abuse, uncomplicated ==

== ENCOUNTER → 2017-08-30 | Outpatient (REF) | payer OTHER | LOC: M LAB REF 12:56 | DX: Z34.82 Encounter for supervision of other normal pregnancy, second trimester (principal) ==

== ENCOUNTER 2017-09-28 13:18 | Outpatient (RCR) | payer OTHER | END 2017-10-27 | LOC: M OUTALCOH 13:18 | DX: F10.20 Alcohol dependence, uncomplicated (principal); F11.20 Opioid dependence, uncomplicated; F14.10 Cocaine abuse, uncomplicated ==

== ENCOUNTER → 2017-10-22 | Outpatient (CLI) | payer OTHER ==
[2017-10-22 13:11] LABS: HEMATOCRIT 28.5 % (36.0-47.0); HEMOGLOBIN 9.8 g/dl (12.0-15.5); MEAN CORPUSCULAR HEMOGLOBIN 32.3 pg (27.0-33.0); MEAN CORPUSCULAR HGB CONC 34.4 g/dl (32.0-36.5); MEAN CORPUSCULAR VOLUME 94.1 fl (80.0-96.0); PLATELET COUNT, AUTOMATED 201 10^3/uL (150-450); RED BLOOD COUNT 3.03 10^6/uL (4.00-5.40); RED CELL DISTRIBUTION WIDTH 13.2 % (11.5-14.5)
[2017-10-22 13:32] LABS: GLUCOSE CHALLENGE TEST 1 HOUR 94 MG/DL (LESS THAN 140)
== END ==
LOC: M LAB 10:42
DX: Z34.82 Encounter for supervision of other normal pregnancy, second trimester (principal); Z3A.00 Weeks of gestation of pregnancy not specified
CPT/HCPCS: 82950

== ENCOUNTER 2017-10-29 10:33 | Outpatient (RCR) | payer OTHER | END 2017-11-27 | LOC: M OUTALCOH 11-05 16:00 | DX: F10.20 Alcohol dependence, uncomplicated (principal); F11.20 Opioid dependence, uncomplicated; F14.10 Cocaine abuse, uncomplicated ==

== ENCOUNTER → 2017-10-30 | Outpatient (REF) | payer OTHER | LOC: M LAB REF 12:57 | DX: Z34.83 Encounter for supervision of other normal pregnancy, third trimester (principal); Z36.89 Encounter for other specified antenatal screening | CPT/HCPCS: 87086 ==

== ENCOUNTER → 2017-12-19 | Outpatient (REF) | payer OTHER | LOC: M LAB REF 16:54 | DX: Z34.83 Encounter for supervision of other normal pregnancy, third trimester (principal) ==

== ENCOUNTER 2018-01-14 16:31 | Inpatient (IN) | payer OTHER ==
[2018-01-14] MEDS ORDERED: OXYTOCIN 30 UNITS IN 0.9% NaCl 500ML IV BAG (J2590) As Ordered (16:53)
[2018-01-14] MEDS ORDERED: DIBUCAINE 1% OINTMENT 30GM TOP (17:45)
[2018-01-14] MEDS ORDERED: METHYLERGONOVINE MALEATE 0.2 MG TAB PO (17:45)
[2018-01-14] MEDS ORDERED: DOCUSATE SODIUM 100 MG CAP PO (17:45)
[2018-01-14] MEDS: OXYTOCIN DRIP 30 UNITS in APPROPRIATE DILUENT 1 EA IV (18:17)
[2018-01-14] MEDS: IBUPROFEN 800 MG TAB PO (18:18)
[2018-01-14] MEDS: ACETAMINOPHEN 500 MG TAB PO (18:18)
[2018-01-14 18:41] LABS: HEMATOCRIT 32.8 % (36.0-47.0); HEMOGLOBIN 11.1 g/dl (12.0-15.5); MEAN CORPUSCULAR HEMOGLOBIN 31.7 pg (27.0-33.0); MEAN CORPUSCULAR HGB CONC 33.8 g/dl (32.0-36.5); MEAN CORPUSCULAR VOLUME 93.7 fl (80.0-96.0); PLATELET COUNT, AUTOMATED 202 10^3/uL (150-450); RED CELL DISTRIBUTION WIDTH 12.3 % (11.5-14.5); WHITE BLOOD COUNT 14.5 10^3/uL (4.0-10.0)
[2018-01-14] MEDS: MEASLES,MUMPS,RUBELLA VACCINE INJ (MMR-II) (90707) SC (21:59)
[2018-01-14] MEDS: RHOGAM 300 MCG (1500 IU) INJ (J2790) IM (21:59)
[2018-01-15] MEDS: ACETAMINOPHEN 500 MG TAB PO ×4 (00:32→22:07)
[2018-01-15] MEDS: IBUPROFEN 800 MG TAB PO ×2 (04:14→15:06)
[2018-01-15] MEDS: PRENATAL VITAMINS CHEWABLE TABLET PO (07:56)
[2018-01-15] MEDS: INFLUENZA QUADRIVALENT PF VACCINE 0.5ML SYRINGE (90686) IM (07:58)
[2018-01-16] MEDS: IBUPROFEN 800 MG TAB PO ×2 (01:40→12:46)
[2018-01-16] MEDS: PRENATAL VITAMINS CHEWABLE TABLET PO (08:47)
[2018-01-16] MEDS: ACETAMINOPHEN 500 MG TAB PO (08:47)
[2018-01-16] MEDS: medroxyPROGESTERone ACET IM SUSP 150 MG/ML VIAL (J1050) IM (12:47)
== END 2018-01-16 13:15 | disposition home or self-care (01) | DRG 560 ==
LOC: M LDO 16:31 → M LDI 16:47 → M OBS 19:43
PROVIDERS: Obstetrics & Gynecology
PROC: 10E0XZZ Delivery of Products of Conception, External Approach (ICD-10-PCS; principal; 2018-01-14)
DX: O99.02 Anemia complicating childbirth (principal); O99.344 Other mental disorders complicating childbirth; F32.9 Major depressive disorder, single episode, unspecified; Z37.0 Single live birth; Z3A.39 39 weeks gestation of pregnancy; F17.200 Nicotine dependence, unspecified, uncomplicated; O99.820 Streptococcus B carrier state complicating pregnancy; O99.334 Smoking (tobacco) complicating childbirth; D64.9 Anemia, unspecified; O69.82X0 Labor and delivery complicated by other cord entanglement, without compression, not applicable or unspecified

== ENCOUNTER → 2018-02-20 | Outpatient (REF) | payer OTHER ==
[2018-02-20 18:06] LABS: HEMATOCRIT 37.4 % (36.0-47.0); HEMOGLOBIN 12.4 g/dl (12.0-15.5); MEAN CORPUSCULAR HEMOGLOBIN 30.7 pg (27.0-33.0); MEAN CORPUSCULAR HGB CONC 33.2 g/dl (32.0-36.5); MEAN CORPUSCULAR VOLUME 92.6 fl (80.0-96.0); PLATELET COUNT, AUTOMATED 274 10^3/uL (150-450); RED BLOOD COUNT 4.04 10^6/uL (4.00-5.40); WHITE BLOOD COUNT 7.3 10^3/uL (4.0-10.0)
[2018-02-20 18:37] LABS: ALBUMIN 3.8 GM/DL (3.2-5.2); ALBUMIN/GLOBULIN RATIO 1.09 (1.00-1.93); ALKALINE PHOSPHATASE 58 U/L (45-117); ALT/SGPT 45 U/L (12-78); ANION GAP 6 MEQ/L (8-16); AST/SGOT 28 U/L (7-37); BILIRUBIN,TOTAL 0.4 MG/DL (0.2-1.0); BLOOD UREA NITROGEN 12 MG/DL (7-18); CALCIUM LEVEL 8.6 MG/DL (8.5-10.1); CARBON DIOXIDE LEVEL 26 MEQ/L (21-32); CHLORIDE LEVEL 109 MEQ/L (98-107); CREATININE FOR GFR 0.79 MG/DL (0.55-1.30); GLOMERULAR FILTRATION RATE > 60.0 (>60); GLUCOSE, FASTING 77 MG/DL (70-100); POTASSIUM SERUM 4.5 MEQ/L (3.5-5.1); SODIUM LEVEL 141 MEQ/L (136-145); TOTAL PROTEIN 7.3 GM/DL (6.4-8.2)
== END ==
LOC: M LAB REF 16:50
DX: Z51.81 Encounter for therapeutic drug level monitoring (principal); Z79.899 Other long term (current) drug therapy
CPT/HCPCS: 84443

== ENCOUNTER → 2019-09-29 | Outpatient (CLI) | payer OTHER ==
[~2019-09-29] MED LIST changes: +IBUP-1114 PO; +MAPA500T2 PO; +PRENTAB9 PO; +QUET100T2 PO; -QUET1TAB8 PO; +ZOLO25TA PO
== END ==
LOC: M OUTALCOH 08:26
PROVIDERS: ATTEND Psychiatry & Neurology Addiction Medicine
DX: Z03.89 Encounter for observation for other suspected diseases and conditions ruled out (principal)

== ENCOUNTER 2019-10-06 14:01 | Outpatient (RCR) | payer OTHER | END 2019-10-28 | LOC: M OUTALCOH 14:01 | PROVIDERS: ATTEND Psychiatry & Neurology Addiction Medicine | DX: Z03.89 Encounter for observation for other suspected diseases and conditions ruled out (principal); Z72.0 Tobacco use ==

== ENCOUNTER 2020-07-10 08:40 | Emergency (ER) | payer OTHER ==
[~2020-07-10] VITALS: Ht 152.4 cm; Wt 63.9 kg
[~2020-07-10 08:40] MED LIST changes: +RISP-7; -RISP0.5T3
[2020-07-10] MEDS ORDERED: GI COCKTAIL 50ML BTL(HYOSCYAMINE/MAALOX/LIDOCAINE VISCOUS)(1:3:1) PO ONE (09:35)
[2020-07-10 09:50] LABS: BASO % 0.6 % (0.0-1.0); EOS # 0.1 10^3/uL (0.0-0.5); EOS % 1.7 % (0.0-3.0); HEMATOCRIT 35.6 % (36.0-47.0); HEMOGLOBIN 11.9 g/dl (12.0-15.5); LYMPH # 1.8 10^3/uL (1.5-5.0); LYMPH % 36.2 % (24.0-44.0); MEAN CORPUSCULAR HEMOGLOBIN 32.2 pg (27.0-33.0); MEAN CORPUSCULAR HGB CONC 33.4 g/dl (32.0-36.5); MEAN CORPUSCULAR VOLUME 96.2 fl (80.0-96.0); MONO # 0.5 10^3/uL (0.0-0.8); MONO % 9.5 % (2.0-8.0); NEUTROPHILS # 2.5 10^3/uL (1.5-8.5); NEUTROPHILS % 51.8 % (36.0-66.0); PLATELET COUNT, AUTOMATED 202 10^3/uL (150-450); WHITE BLOOD COUNT 4.8 10^3/uL (4.0-10.0)
[2020-07-10 10:16] LABS: ALBUMIN 3.8 GM/DL (3.2-5.2); ALT/SGPT 17 U/L (12-78); BILIRUBIN,TOTAL 0.3 MG/DL (0.2-1.0); BLOOD UREA NITROGEN 9 MG/DL (7-18); CALCIUM LEVEL 8.8 MG/DL (8.5-10.1); CARBON DIOXIDE LEVEL 26 MEQ/L (21-32); CHLORIDE LEVEL 110 MEQ/L (98-107); CREATININE FOR GFR 0.79 MG/DL (0.55-1.30); GLOMERULAR FILTRATION RATE > 60.0 (>60); GLUCOSE, FASTING 86 MG/DL (70-100); LIPASE 108 U/L (73-393); SODIUM LEVEL 141 MEQ/L (136-145); TOTAL PROTEIN 7.1 GM/DL (6.4-8.2)
[2020-07-10] MEDS ORDERED: SUCR1SS PO (10:52)
[2020-07-10 11:10] VITALS: BP 112/64
== END 2020-07-10 11:14 | disposition home or self-care (01) ==
LOC: M ED 08:40
DX: R10.12 Left upper quadrant pain (principal); R14.0 Abdominal distension (gaseous); Z87.42 Personal history of other diseases of the female genital tract; F17.200 Nicotine dependence, unspecified, uncomplicated; Z88.1 Allergy status to other antibiotic agents

== ENCOUNTER → 2021-01-19 | Outpatient (REF) | payer OTHER ==
[~2021-01-19] MED LIST changes: +SUCR1SS PO
[2021-01-19 18:16] LABS: HEMATOCRIT 33.6 % (36.0-47.0); HEMOGLOBIN 11.3 g/dl (12.0-15.5); MEAN CORPUSCULAR HEMOGLOBIN 32.5 pg (27.0-33.0); MEAN CORPUSCULAR HGB CONC 33.6 g/dl (32.0-36.5); MEAN CORPUSCULAR VOLUME 96.6 fl (80.0-96.0); PLATELET COUNT, AUTOMATED 251 10^3/uL (150-450); RED BLOOD COUNT 3.48 10^6/uL (4.00-5.40); WHITE BLOOD COUNT 6.5 10^3/uL (4.0-10.0)
[2021-01-19 18:36] LABS: HCG, SERUM QUANTITATIVE 864 MIU/ML
[2021-01-19 18:57] LABS: HEPATITIS B SURFACE ANTIGEN NEGATIVE (NEGATIVE)
[2021-01-19 19:25] LABS: HIV 1&2 SCREEN CENTAUR NEGATIVE (NEGATIVE)
== END ==
LOC: M LAB REF 17:36
PROVIDERS: ATTEND Obstetrics & Gynecology
DX: Z32.01 Encounter for pregnancy test, result positive (principal); O36.80X0 Pregnancy with inconclusive fetal viability, not applicable or unspecified; Z3A.00 Weeks of gestation of pregnancy not specified

== ENCOUNTER → 2021-01-22 | Outpatient (CLI) | payer OTHER | LOC: M LAB 09:43 | PROVIDERS: ATTEND Obstetrics & Gynecology | DX: O36.80X0 Pregnancy with inconclusive fetal viability, not applicable or unspecified (principal); Z3A.00 Weeks of gestation of pregnancy not specified ==

== ENCOUNTER → 2021-06-11 | Outpatient (CLI) | payer OTHER ==
[2021-06-11 12:40] LABS: BASO # 0.1 10^3/uL (0.0-0.2); BASO % 0.5 % (0.0-1.0); EOS # 0.1 10^3/uL (0.0-0.5); EOS % 0.9 % (0.0-3.0); HEMOGLOBIN 9.5 g/dl (12.0-15.5); LYMPH # 2.3 10^3/uL (1.5-5.0); LYMPH % 23.3 % (24.0-44.0); MEAN CORPUSCULAR HEMOGLOBIN 32.1 pg (27.0-33.0); MEAN CORPUSCULAR HGB CONC 32.8 g/dl (32.0-36.5); MONO # 0.8 10^3/uL (0.0-0.8); MONO % 8.1 % (2.0-8.0); NEUTROPHILS # 6.6 10^3/uL (1.5-8.5); NEUTROPHILS % 66.2 % (36.0-66.0); PLATELET COUNT, AUTOMATED 236 10^3/uL (150-450); RED BLOOD COUNT 2.96 10^6/uL (4.00-5.40)
== END ==
LOC: M LAB 10:43
PROVIDERS: ATTEND Obstetrics & Gynecology
DX: Z34.82 Encounter for supervision of other normal pregnancy, second trimester (principal)

== ENCOUNTER 2021-08-09 09:30 | Emergency (ER) | payer OTHER ==
[~2021-08-09] VITALS: Ht 152.4 cm; Wt 69.5 kg
[2021-08-09] MEDS ORDERED: PREN1TAB25 (09:38)
[2021-08-09] MEDS ORDERED: FERR324T2 (09:38)
[2021-08-09] MEDS ORDERED: NS 1,000 ML IV ONE (10:20)
[2021-08-09 10:59] LABS: BASO # 0.1 10^3/uL (0.0-0.2); BASO % 0.7 % (0.0-1.0); EOS % 0.4 % (0.0-3.0); HEMATOCRIT 31.6 % (36.0-47.0); HEMOGLOBIN 10.5 g/dl (12.0-15.5); LYMPH # 0.4 10^3/uL (1.5-5.0); LYMPH % 5.8 % (24.0-44.0); MEAN CORPUSCULAR HEMOGLOBIN 32.1 pg (27.0-33.0); MEAN CORPUSCULAR HGB CONC 33.2 g/dl (32.0-36.5); MEAN CORPUSCULAR VOLUME 96.6 fl (80.0-96.0); MONO # 0.7 10^3/uL (0.0-0.8); MONO % 9.5 % (2.0-8.0); NEUTROPHILS # 6.2 10^3/uL (1.5-8.5); NEUTROPHILS % 81.8 % (36.0-66.0); PLATELET COUNT, AUTOMATED 191 10^3/uL (150-450); RED BLOOD COUNT 3.27 10^6/uL (4.00-5.40); WHITE BLOOD COUNT 7.6 10^3/uL (4.0-10.0)
[2021-08-09 11:09] LABS: BLOOD UREA NITROGEN 6 MG/DL (7-18); C REACTIVE PROTEIN QUANTITATIV 0.66 MG/DL (0.00-0.30); CALCIUM LEVEL 8.6 MG/DL (8.5-10.1); CARBON DIOXIDE LEVEL 23 MEQ/L (21-32); CHLORIDE LEVEL 107 MEQ/L (98-107); CREATININE FOR GFR 0.53 MG/DL (0.55-1.30); FREE THYROXINE INDEX 4.4 % (1.3-4.8); GLOMERULAR FILTRATION RATE > 60.0 (>60); GLUCOSE, FASTING 77 MG/DL (70-100); POTASSIUM SERUM 3.5 MEQ/L (3.5-5.1); SODIUM LEVEL 138 MEQ/L (136-145); T UPTAKE 28 % (30-39); THYROID STIMULATING HORMONE 0.759 uIU/ML (0.358-3.740); THYROXINE (T4) 15.6 UG/DL (4.5-12.0)
[2021-08-09 11:10] VITALS: BP 92/55
[2021-08-09 11:25] LABS: ERYTHROCYTE SEDIMENTATION RATE 49 mm/hr (0-20)
[2021-08-09] MEDS ORDERED: CYCLOBENZAPRINE 10MG TABLET PO ONE (12:45)
[2021-08-09] MEDS ORDERED: ACETAMINOPHEN 500 MG TAB PO ONE (12:45)
== END 2021-08-09 11:31 | disposition home or self-care (01) ==
LOC: M ED 09:30
DX: R10.9 Unspecified abdominal pain (principal); M54.50 Low back pain, unspecified; R55 Syncope and collapse; R00.0 Tachycardia, unspecified; Z3A.33 33 weeks gestation of pregnancy; Z88.0 Allergy status to penicillin

== ENCOUNTER → 2021-08-25 | Outpatient (REF) | payer OTHER, MEDICAID ==
[~2021-08-25] MED LIST changes: +FERR324T2; +PREN1TAB25
== END ==
LOC: M LAB REF 12:28
PROVIDERS: ATTEND Obstetrics & Gynecology
DX: Z36.85 Encounter for antenatal screening for Streptococcus B (principal)

== ENCOUNTER 2021-09-15 12:29 | Inpatient (IN) | payer OTHER, MEDICAID ==
[2021-09-15] VITALS (9 sets, daily range): BP systolic 107–133; BP diastolic 57–84
[~2021-09-15] VITALS: Ht 152.4 cm; Wt 73.3 kg
[2021-09-15] MEDS ORDERED: HOME MED LIST COMPLETE! XX SCH (12:50)
[2021-09-15] MEDS ORDERED: MULTTAB20 PO (13:06)
[2021-09-15] MEDS ORDERED: OXYTOCIN 30 UNITS IN 0.9% NaCl 500ML IV BAG (J2590) As Ordered ONE (17:06)
[2021-09-15] MEDS ORDERED: OXYTOCIN DRIP 30 UNITS in IV 1 EA IV PRN (19:10)
[2021-09-15] MEDS ORDERED: DOCUSATE SODIUM 100MG CAPSULE PO PRN (19:30)
[2021-09-15] MEDS ORDERED: METHYLERGONOVINE MALEATE 0.2 MG TAB PO PRN (19:30)
[2021-09-15] MEDS ORDERED: RHOGAM 300 MCG (1500 IU) INJ (J2790) IM SCH (19:30)
[2021-09-15] MEDS ORDERED: MEASLES,MUMPS,RUBELLA VACCINE INJ (MMR-II) (90707) SC SCH (19:30)
[2021-09-15] MEDS ORDERED: ACETAMINOPHEN TAB 650MG DOSE (2X325MG) PO PRN (19:30)
[2021-09-15] MEDS ORDERED: IBUPROFEN 600MG TAB PO PRN (19:30)
[2021-09-15] MEDS ORDERED: DIBUCAINE 1% OINTMENT 30GM TOP PRN (19:30)
[2021-09-15] MEDS ORDERED: OXYTOCIN DRIP 30 UNITS in IV 1 EA IV ONE (19:30)
[2021-09-15] MEDS: ACETAMINOPHEN 500 MG TAB PO PRN (19:37)
[2021-09-15] MEDS ORDERED: BOOSTRIX/ADACEL VACCINE (DIPHTH/PERTUSS/ACELL/TETANUS) 0.5ML SYR IM ONE (22:50)
[2021-09-15] MEDS: IBUPROFEN 800 MG TAB PO PRN (23:26)
[2021-09-16] MEDS: ACETAMINOPHEN 500 MG TAB PO PRN (05:00)
[2021-09-16 06:01] VITALS: BP 111/64
[2021-09-16] MEDS: PRENATAL VITAMINS CHEWABLE TABLET PO SCH (09:00)
[2021-09-16] MEDS: IBUPROFEN 800 MG TAB PO PRN ×2 (09:01→20:44)
[2021-09-16 18:00] VITALS: BP 121/64
[2021-09-17] MEDS: ACETAMINOPHEN 500 MG TAB PO PRN (04:56)
[2021-09-17] MEDS ORDERED: BOOSTRIX/ADACEL VACCINE (DIPHTH/PERTUSS/ACELL/TETANUS) 0.5ML SYR IM ONE (05:15)
[2021-09-17 06:00] VITALS: BP 115/70
[2021-09-17] MEDS: PRENATAL VITAMINS CHEWABLE TABLET PO SCH (08:30)
[2021-09-17] MEDS: IBUPROFEN 800 MG TAB PO PRN (09:25)
[2021-09-17] MEDS ORDERED: IBUP-1022 PO (09:44)
[2021-09-17] MEDS ORDERED: COLA100C5 PO (09:44)
[2021-09-17] MEDS ORDERED: ACET-683 PO (09:44)
== END 2021-09-17 10:40 | disposition home or self-care (01) | DRG 560 ==
LOC: M LDO 12:29 → M LDI 16:54 → M OBS 20:29
PROVIDERS: ADMIT Specialist; ATTEND Specialist
PROC: 10E0XZZ Delivery of Products of Conception, External Approach (ICD-10-PCS; principal; 2021-09-15)
PROC: 10907ZC Drainage of Amniotic Fluid, Therapeutic from Products of Conception, Via Natural or Artificial Opening (ICD-10-PCS; 2021-09-15)
DX: O69.82X0 Labor and delivery complicated by other cord entanglement, without compression, not applicable or unspecified (principal); Z88.0 Allergy status to penicillin; Z37.0 Single live birth; Z3A.38 38 weeks gestation of pregnancy

== ENCOUNTER → 2022-01-22 | Outpatient (CLI) | payer MEDICAID, OTHER ==
[~2022-01-22] MED LIST changes: +ACET-683 PO; +COLA100C5 PO; +IBUP-1022 PO; +MULTTAB20 PO
== END ==
LOC: M LABSMTC 11:36
PROVIDERS: ATTEND Anesthesiology
DX: Z01.812 Encounter for preprocedural laboratory examination (principal); Z20.822 Contact with and (suspected) exposure to COVID-19

== ENCOUNTER → 2022-02-19 | Outpatient (CLI) | payer OTHER ==
[~2022-02-19] MED LIST changes: +PERC5TAB12 PO
== END ==
LOC: M LABSMTC 09:39
PROVIDERS: ATTEND Anesthesiology
DX: Z01.812 Encounter for preprocedural laboratory examination (principal); Z20.822 Contact with and (suspected) exposure to COVID-19

== ENCOUNTER 2022-02-22 09:19 | Day surgery (SDC) | payer OTHER ==
[~2022-02-22] VITALS: Ht 152.4 cm; Wt 67.5 kg
[~2022-02-22 09:19] MED LIST changes: +BUPIVACAINE/EPIN 0.25% 30 ML VIAL As Ordered ONE
[2022-02-22 09:50] LABS: HEMATOCRIT 35.9 % (36.0-47.0); HEMOGLOBIN 11.8 g/dl (12.0-15.5); MEAN CORPUSCULAR HEMOGLOBIN 31.5 pg (27.0-33.0); MEAN CORPUSCULAR HGB CONC 32.9 g/dl (32.0-36.5); MEAN CORPUSCULAR VOLUME 95.7 fl (80.0-96.0); PLATELET COUNT, AUTOMATED 207 10^3/uL (150-450); RED BLOOD COUNT 3.75 10^6/uL (4.00-5.40); WHITE BLOOD COUNT 5.7 10^3/uL (4.0-10.0)
[2022-02-22] MEDS ORDERED: KETOROLAC 60MG 2ML VIAL As Ordered ONE (10:09)
[2022-02-22] MEDS ORDERED: propofoL 200 MG/20 ML VIAL As Ordered ONE ×2 (10:09→12:34)
[2022-02-22] MEDS ORDERED: SUGAMMADEX SODIUM 500 MG/5 ML VIAL (BRIDION) As Ordered ONE (10:10)
[2022-02-22] MEDS ORDERED: LIDOCAINE 2% 100MG/5ML SDV (FOR ANES.) As Ordered ONE (10:10)
[2022-02-22] MEDS ORDERED: dexameTHASONE 4 MG/ML 1ML VIAL (J1100 PER 1MG) As Ordered ONE (10:12)
[2022-02-22] MEDS ORDERED: MIDAZOLAM INJ 2MG/2ML VIAL (J2250 PER 1MG) As Ordered ONE (10:12)
[2022-02-22] MEDS ORDERED: ONDANSETRON 4MG 2ML VIAL As Ordered ONE (10:12)
[2022-02-22] MEDS ORDERED: fentaNYL 100 MCG/2 ML INJECTION As Ordered ONE ×2 (10:12→11:03)
[2022-02-22] MEDS ORDERED: ROCURONIUM BROMIDE 50 MG/5 ML VIAL As Ordered ONE (10:17)
[2022-02-22] MEDS ORDERED: GLYCOPYRROLATE INJ 0.2 MG/ML 2 ML VIAL As Ordered ONE (10:26)
[2022-02-22] MEDS ORDERED: ACETAMINOPHEN 1000MG 100ML IV BTL (OFIRMEV) (J0131 PER 10MG) As Ordered ONE (10:58)
[2022-02-22] MEDS ORDERED: ONDANSETRON 4MG 2ML VIAL IV PRN (12:45)
[2022-02-22] MEDS: oxyCODONE 5MG TAB PO PRN ×2 (13:01→13:30)
[2022-02-22] MEDS: fentaNYL 100 MCG/2 ML INJECTION IV PRN ×4 (13:01→13:32)
[2022-02-22 13:50] VITALS: BP 136/84
== END 2022-02-22 14:30 | disposition home or self-care (01) ==
LOC: M SDC 09:19
PROVIDERS: ATTEND Obstetrics & Gynecology
DX: Z30.2 Encounter for sterilization (principal); Z88.0 Allergy status to penicillin
CPT/HCPCS: 36415; 58661; 81025; 85027; 86850; 86900; 86901; 88302; J0131; J1100; J1885; J2250; J2405; J3010

== ENCOUNTER 2022-05-29 12:09 | Emergency (ER) | payer OTHER ==
[~2022-05-29] VITALS: Ht 152.4 cm; Wt 67.3 kg
[~2022-05-29 12:09] MED LIST changes: -BUPIVACAINE/EPIN 0.25% 30 ML VIAL As Ordered ONE
[2022-05-29] MEDS ORDERED: ACET-683 PO (13:10)
[2022-05-29] MEDS ORDERED: ISOVUE-370 76% 100ML VIAL As Ordered ONE (13:45)
[2022-05-29 13:59] LABS: BASO % 0.4 % (0.0-1.0); EOS # 0.1 10^3/uL (0.0-0.5); EOS % 1.3 % (0.0-3.0); HEMATOCRIT 36.2 % (36.0-47.0); HEMOGLOBIN 11.8 g/dl (12.0-15.5); LYMPH # 1.9 10^3/uL (1.5-5.0); LYMPH % 40.9 % (24.0-44.0); MEAN CORPUSCULAR HEMOGLOBIN 31.2 pg (27.0-33.0); MEAN CORPUSCULAR HGB CONC 32.6 g/dl (32.0-36.5); MEAN CORPUSCULAR VOLUME 95.8 fl (80.0-96.0); MONO # 0.4 10^3/uL (0.0-0.8); MONO % 9.3 % (2.0-8.0); NEUTROPHILS # 2.2 10^3/uL (1.5-8.5); NEUTROPHILS % 47.9 % (36.0-66.0); PLATELET COUNT, AUTOMATED 214 10^3/uL (150-450); RED BLOOD COUNT 3.78 10^6/uL (4.00-5.40); WHITE BLOOD COUNT 4.5 10^3/uL (4.0-10.0)
[2022-05-29 14:28] LABS: ALKALINE PHOSPHATASE 30 U/L (46-116); ALT/SGPT 16 U/L (7.0-40); AST/SGOT 19 U/L (<34); BILIRUBIN,DIRECT < 0.1 MG/DL (<0.4); BILIRUBIN,TOTAL 0.3 MG/DL (0.3-1.2); TOTAL PROTEIN 7.2 G/DL (5.7-8.2)
[2022-05-29 14:50] LABS: RSV AMPLIFICATION NEGATIVE (NEGATIVE)
[2022-05-29] MEDS ORDERED: MORPHINE 2 MG/ML 1ML VIAL As Ordered ONE (17:41)
[2022-05-29 19:11] LABS: APPEARANCE, URINE MANUAL CLEAR (CLEAR); BILIRUBIN, URINE MANUAL NEGATIVE (NEGATIVE); BLOOD URINE MANUAL NEGATIVE (NEGATIVE); COLOR, URINE MANUAL LT YELLOW (YELLOW); GLUCOSE, URINE (UA) MANUAL NEGATIVE (NEGATIVE); KETONE, URINE MANUAL NEGATIVE (NEGATIVE); LEUKOCYTE ESTERASE, URINE MAN NEGATIVE (NEGATIVE); NITRITE, URINE MANUAL NEGATIVE (NEGATIVE); PROTEIN, URINE MANUAL NEGATIVE (NEGATIVE); UROBILINOGEN, URINE MANUAL NORMAL (NORMAL)
[2022-05-29 20:50] VITALS: BP 116/71
== END 2022-05-29 20:52 | disposition home or self-care (01) ==
LOC: M ED 12:09
DX: R42 Dizziness and giddiness (principal); R51.9 Headache, unspecified; F41.9 Anxiety disorder, unspecified; F17.200 Nicotine dependence, unspecified, uncomplicated; F10.10 Alcohol abuse, uncomplicated; Z88.1 Allergy status to other antibiotic agents; Z79.1 Long term (current) use of non-steroidal anti-inflammatories (NSAID)

== ENCOUNTER → 2022-06-15 | Outpatient (CLI) | payer OTHER | LOC: M RAD 14:49 | PROVIDERS: ATTEND Nurse Practitioner Family | DX: L98.9 Disorder of the skin and subcutaneous tissue, unspecified (principal) ==

== ENCOUNTER 2022-10-09 09:16 | Emergency (ER) | payer MEDICAID, OTHER ==
[~2022-10-09] VITALS: Ht 152.4 cm; Wt 60.4 kg
[2022-10-09 09:17] VITALS: TEMP 98.1
[2022-10-09] MEDS ORDERED: LORA-674 (09:42)
[2022-10-09] MEDS ORDERED: SUCRALFATE 1 GM TAB PO ONE (11:20)
[2022-10-09] MEDS ORDERED: HYOSCYAMINE SULFATE 0.125 MG SUBL TABLET PO ONE (11:20)
[2022-10-09] MEDS ORDERED: OMEPRAZOLE 20MG CAP PO ONE (11:20)
[2022-10-09 11:28] LABS: BASO % 0.4 % (0.0-1.0); EOS # 0.1 10^3/uL (0.0-0.5); EOS % 0.9 % (0.0-3.0); HEMATOCRIT 37.5 % (36.0-47.0); HEMOGLOBIN 12.8 g/dl (12.0-15.5); LYMPH # 1.9 10^3/uL (1.5-5.0); LYMPH % 35.1 % (24.0-44.0); MEAN CORPUSCULAR HEMOGLOBIN 32.3 pg (27.0-33.0); MEAN CORPUSCULAR HGB CONC 34.1 g/dl (32.0-36.5); MEAN CORPUSCULAR VOLUME 94.7 fl (80.0-96.0); MONO # 0.5 10^3/uL (0.0-0.8); MONO % 9.8 % (2.0-8.0); NEUTROPHILS # 2.9 10^3/uL (1.5-8.5); NEUTROPHILS % 53.6 % (36.0-66.0); PLATELET COUNT, AUTOMATED 199 10^3/uL (150-450); RED BLOOD COUNT 3.96 10^6/uL (4.00-5.40); WHITE BLOOD COUNT 5.3 10^3/uL (4.0-10.0)
[2022-10-09 11:53] LABS: LIPASE 30 U/L (12-53)
[2022-10-09 11:54] LABS: HCG, SERUM QUALITATIVE NEGATIVE (NEGATIVE)
[2022-10-09 11:55] LABS: ALBUMIN 4.4 G/DL (3.2-5.2); ALKALINE PHOSPHATASE 25 U/L (46-116); ALT/SGPT 21 U/L (7.0-40); AST/SGOT 10 U/L (<34); BILIRUBIN,DIRECT 0.2 MG/DL (<0.4); BILIRUBIN,TOTAL 0.5 MG/DL (0.3-1.2); BLOOD UREA NITROGEN 12 MG/DL (9-23); CALCIUM LEVEL 9.6 MG/DL (8.5-10.1); CARBON DIOXIDE LEVEL 24 MMOL/L (20-31); CHLORIDE LEVEL 107 MMOL/L (98-107); CREATININE FOR GFR 0.64 MG/DL (0.55-1.30); GLOMERULAR FILTRATION RATE > 60.0 (>60); GLUCOSE, FASTING 87 MG/DL (60-100); POTASSIUM SERUM 3.9 MMOL/L (3.5-5.1); SODIUM LEVEL 140 MMOL/L (136-145); TOTAL PROTEIN 7.3 G/DL (5.7-8.2)
[2022-10-09] MEDS ORDERED: KETOROLAC 60MG 2ML VIAL IM ONE (12:50)
[2022-10-09] MEDS ORDERED: ONDA4TAB6 PO (12:57)
[2022-10-09] MEDS ORDERED: OMEP1CAP73 PO (12:57)
[2022-10-09] MEDS ORDERED: CARA1TAB6 PO (12:57)
[2022-10-09 13:05] VITALS: BP 108/68; O2SAT 99
== END 2022-10-09 13:08 | disposition home or self-care (01) ==
LOC: M ED 09:16
DX: R10.13 Epigastric pain (principal); Z88.1 Allergy status to other antibiotic agents; Z79.83 Long term (current) use of bisphosphonates; Z79.899 Other long term (current) drug therapy
CPT/HCPCS: 76705; 80048; 80076; 83690; 84703; 85025; 96372; 99284; J1885

== ENCOUNTER → 2022-11-03 | Outpatient (REF) | payer OTHER, MEDICAID ==
[~2022-11-03] MED LIST changes: +CARA1TAB6 PO; +LORA-674; +OMEP1CAP73 PO; +ONDA4TAB6 PO
[2022-11-03 18:39] LABS: BASO % 0.8 % (0.0-1.0); EOS % 0.6 % (0.0-3.0); HEMATOCRIT 37.8 % (36.0-47.0); HEMOGLOBIN 12.3 g/dl (12.0-15.5); LYMPH # 1.8 10^3/uL (1.5-5.0); LYMPH % 36.1 % (24.0-44.0); MEAN CORPUSCULAR HEMOGLOBIN 31.5 pg (27.0-33.0); MEAN CORPUSCULAR HGB CONC 32.5 g/dl (32.0-36.5); MEAN CORPUSCULAR VOLUME 96.7 fl (80.0-96.0); MONO # 0.5 10^3/uL (0.0-0.8); MONO % 9.7 % (2.0-8.0); NEUTROPHILS # 2.6 10^3/uL (1.5-8.5); NEUTROPHILS % 52.6 % (36.0-66.0); PLATELET COUNT, AUTOMATED 215 10^3/uL (150-450); RED BLOOD COUNT 3.91 10^6/uL (4.00-5.40); WHITE BLOOD COUNT 4.9 10^3/uL (4.0-10.0)
[2022-11-03 19:05] LABS: CHOLESTEROL RISK RATIO 2.6 (<5); HDL CHOLESTEROL 57.1 MG/DL (>40); LDL CHOLESTEROL 76.1 MG/DL (<100); NON-HDL-C 91.9 MG/DL
[2022-11-03 19:06] LABS: THYROID STIMULATING HORMONE 0.918 uIU/ML (0.55-4.78); TOTAL 25(OH) VITAMIN D 29.1 NG/ML (20.0-100.0)
[2022-11-03 19:07] LABS: FREE T4 1.22 NG/DL (0.89-1.76)
== END ==
LOC: M LAB REF 16:40
PROVIDERS: ATTEND Nurse Practitioner Family
DX: R89.9 Unspecified abnormal finding in specimens from other organs, systems and tissues (principal); R10.13 Epigastric pain; Z68.29 Body mass index [BMI] 29.0-29.9, adult; E55.9 Vitamin D deficiency, unspecified

== ENCOUNTER 2022-12-25 14:41 | Emergency (ER) | payer MEDICAID, OTHER ==
[~2022-12-25] VITALS: Ht 152.4 cm; Wt 56.4 kg
[2022-12-25 14:42] VITALS: TEMP 99.3
[2022-12-25 15:36] LABS: APPEARANCE, URINE HAZY (CLEAR); BACTERIA, URINE AUTO NEGATIVE (NEGATIVE); BILIRUBIN, URINE AUTO NEGATIVE (NEGATIVE); BLOOD, URINE BLOOD NEGATIVE (NEGATIVE); COLOR, URINE YELLOW (YELLOW); GLUCOSE, URINE (UA) AUTO NEGATIVE (NEGATIVE); HEMATOCRIT 36.6 % (36.0-47.0); HEMOGLOBIN 12.3 g/dl (12.0-15.5); KETONE, URINE AUTO TRACE mg/dL (NEGATIVE); LEUKOCYTE ESTERASE, URINE AUTO 1+ (NEGATIVE); MEAN CORPUSCULAR HEMOGLOBIN 31.9 pg (27.0-33.0); MEAN CORPUSCULAR HGB CONC 33.6 g/dl (32.0-36.5); MEAN CORPUSCULAR VOLUME 95.1 fl (80.0-96.0); MUCUS, URINE SMALL (NEGATIVE); NITRITE, URINE AUTO NEGATIVE (NEGATIVE); PLATELET COUNT, AUTOMATED 205 10^3/uL (150-450); PROTEIN, URINE AUTO 1+ mg/dL (NEGATIVE); RBC, URINE AUTO 2 /HPF (0-3); RED BLOOD COUNT 3.85 10^6/uL (4.00-5.40); SPECIFIC GRAVITY URINE AUTO 1.029 (1.002-1.035); SQUAMOUS EPITHELIAL CELL UR AU 7 /HPF (0-6); WBC, URINE AUTO 5 /HPF (0-3); WHITE BLOOD COUNT 7.1 10^3/uL (4.0-10.0)
[2022-12-25 16:08] LABS: BLOOD UREA NITROGEN 12 MG/DL (9-23); CALCIUM LEVEL 9.1 MG/DL (8.5-10.1); CARBON DIOXIDE LEVEL 26 MMOL/L (20-31); CHLORIDE LEVEL 108 MMOL/L (98-107); CREATININE FOR GFR 0.61 MG/DL (0.55-1.30); GLOMERULAR FILTRATION RATE > 60.0 (>60); GLUCOSE, FASTING 105 MG/DL (60-100); HCG, SERUM QUANTITATIVE < 2.6 MIU/ML (<4.2); POTASSIUM SERUM 3.5 MMOL/L (3.5-5.1); SODIUM LEVEL 142 MMOL/L (136-145)
[2022-12-25] MEDS ORDERED: NS 1,000 ML IV ONE (16:45)
[2022-12-25] MEDS ORDERED: ISOVUE-370 76% 100ML VIAL As Ordered ONE (16:46)
[2022-12-25] MEDS ORDERED: CARA1TAB6 PO (18:08)
[2022-12-25] MEDS ORDERED: PANT-23 PO (18:08)
[2022-12-25 18:22] VITALS: BP 128/66; O2SAT 98
== END 2022-12-25 18:22 | disposition home or self-care (01) ==
LOC: M ED 14:41
DX: R10.13 Epigastric pain (principal); F41.9 Anxiety disorder, unspecified; K21.9 Gastro-esophageal reflux disease without esophagitis; F17.200 Nicotine dependence, unspecified, uncomplicated; F10.10 Alcohol abuse, uncomplicated; Z88.1 Allergy status to other antibiotic agents; Z79.899 Other long term (current) drug therapy
CPT/HCPCS: 74177; 80048; 81001; 84702; 85027; 96360; 96361; 99284; Q9967

== ENCOUNTER → 2023-05-15 | Outpatient (CLI) | payer OTHER ==
[~2023-05-15] MED LIST changes: +LORA-1041; -LORA-674; +PANT-23 PO
== END ==
LOC: M WHC 12:35
PROVIDERS: ATTEND Physician Assistant Medical
DX: N63.11 Unspecified lump in the right breast, upper outer quadrant (principal)

== ENCOUNTER → 2023-07-17 | Outpatient (REF) | payer OTHER ==
[~2023-07-17] MED LIST changes: -RISP-7; +RISP0.5T82
[2023-07-17 18:42] LABS: BASO % 0.6 % (0.0-1.0); EOS % 0.3 % (0.0-3.0); HEMATOCRIT 36.8 % (36.0-47.0); HEMOGLOBIN 12.4 g/dl (12.0-15.5); LYMPH % 31.8 % (24.0-44.0); MEAN CORPUSCULAR HEMOGLOBIN 32.5 pg (27.0-33.0); MEAN CORPUSCULAR HGB CONC 33.7 g/dl (32.0-36.5); MEAN CORPUSCULAR VOLUME 96.6 fl (80.0-96.0); MONO # 0.3 10^3/uL (0.0-0.8); NEUTROPHILS % 62.1 % (36.0-66.0); PLATELET COUNT, AUTOMATED 279 10^3/uL (150-450); RED BLOOD COUNT 3.81 10^6/uL (4.00-5.40); WHITE BLOOD COUNT 6.4 10^3/uL (4.0-10.0)
[2023-07-17 18:54] LABS: ERYTHROCYTE SEDIMENTATION RATE 8 mm/hr (0-20)
[2023-07-17 19:19] LABS: C REACTIVE PROTEIN QUANTITATIV < 0.40 MG/DL (<1.0); LIPASE 31 U/L (12-53)
[2023-07-17 19:21] LABS: ALBUMIN 4.5 G/DL (3.2-5.2); ALKALINE PHOSPHATASE 25 U/L (46-116); ALT/SGPT 22 U/L (7.0-40); AST/SGOT 16 U/L (<34); BILIRUBIN,TOTAL 0.6 MG/DL (0.3-1.2); BLOOD UREA NITROGEN 10 MG/DL (9-23); CALCIUM LEVEL 9.4 MG/DL (8.5-10.1); CARBON DIOXIDE LEVEL 23 MMOL/L (20-31); CHLORIDE LEVEL 109 MMOL/L (98-107); CREATININE FOR GFR 0.69 MG/DL (0.55-1.30); FERRITIN 45.6 NG/ML (7.3-270.7); GLOMERULAR FILTRATION RATE > 60.0 (>60); GLUCOSE, FASTING 93 MG/DL (60-100); IRON (FE) 94 UG/DL (50-170); PERCENT SATURATION 28.5 % (13.2-45.0); POTASSIUM SERUM 3.8 MMOL/L (3.5-5.1); SODIUM LEVEL 141 MMOL/L (136-145); THYROID STIMULATING HORMONE 0.869 uIU/ML (0.55-4.78); TOTAL IRON BINDING CAPACITY 330 UG/DL (250-425); TOTAL PROTEIN 7.6 G/DL (5.7-8.2)
== END ==
LOC: M LAB REF 17:52
PROVIDERS: ATTEND Nurse Practitioner Family
DX: R23.1 Pallor (principal); R63.4 Abnormal weight loss; R19.7 Diarrhea, unspecified

== ENCOUNTER → 2023-07-18 | Outpatient (CLI) | payer OTHER | LOC: M RAD 11:58 | PROVIDERS: ATTEND Nurse Practitioner Family | DX: M25.531 Pain in right wrist (principal) ==

== ENCOUNTER 2023-08-03 17:39 | Observation (INO) | payer OTHER ==
[~2023-08-03] VITALS: Ht 152.4 cm; Wt 55.3 kg
[2023-08-03] MEDS: ACETAMINOPHEN 325 MG TAB PO ONE (18:09)
[2023-08-03 19:36] LABS: BASO # 0.1 10^3/uL (0.0-0.2); BASO % 0.3 % (0.0-1.0); EOS # 0.1 10^3/uL (0.0-0.5); EOS % 0.3 % (0.0-3.0); HEMATOCRIT 31.9 % (36.0-47.0); HEMOGLOBIN 11.1 g/dl (12.0-15.5); LYMPH # 1.2 10^3/uL (1.5-5.0); LYMPH % 4.9 % (24.0-44.0); MEAN CORPUSCULAR HEMOGLOBIN 32.2 pg (27.0-33.0); MEAN CORPUSCULAR HGB CONC 34.8 g/dl (32.0-36.5); MEAN CORPUSCULAR VOLUME 92.5 fl (80.0-96.0); MONO # 1.8 10^3/uL (0.0-0.8); MONO % 7.7 % (2.0-8.0); NEUTROPHILS # 20.3 10^3/uL (1.5-8.5); NEUTROPHILS % 85.6 % (36.0-66.0); PLATELET COUNT, AUTOMATED 203 10^3/uL (150-450); RED BLOOD COUNT 3.45 10^6/uL (4.00-5.40); WHITE BLOOD COUNT 23.7 10^3/uL (4.0-10.0)
[2023-08-03 19:48] LABS: INR 1.12; PARTIAL THROMBOPLASTIN TIME 24.2 SECONDS (24.8-34.2)
[2023-08-03 19:57] LABS: BLOOD UREA NITROGEN 9 MG/DL (9-23); CALCIUM LEVEL 8.7 MG/DL (8.5-10.1); CARBON DIOXIDE LEVEL 20 MMOL/L (20-31); CHLORIDE LEVEL 107 MMOL/L (98-107); CK-MB VALUE MASS < 1.0 NG/ML (<3.6); CPK CREATINE PHOSPHOKINASE 50 U/L (34-145); CREATININE FOR GFR 0.68 MG/DL (0.55-1.30); GLOMERULAR FILTRATION RATE > 60.0 (>60); GLUCOSE, FASTING 93 MG/DL (60-100); POTASSIUM SERUM 3.5 MMOL/L (3.5-5.1); SODIUM LEVEL 139 MMOL/L (136-145)
[2023-08-03 20:05] LABS: HCG, SERUM QUALITATIVE NEGATIVE (NEGATIVE)
[2023-08-03] MEDS ORDERED: ISOVUE-370 76% 100ML VIAL As Ordered ONE (20:15)
[2023-08-03] MEDS: cefTRIAXone SOD 1 GM in D5W MINI-BAG PLUS 50 ML IV ONE (21:44)
[2023-08-03] MEDS: AZITHROMYCIN 250MG TABLET PO ONE (21:44)
[2023-08-03] MEDS: NS 1,620 ML in IV 1 EA IV ONE (21:45)
[2023-08-03] MEDS ORDERED: OMEP-173 PO (22:18)
[2023-08-03] MEDS ORDERED: HOME MED LIST COMPLETE! XX SCH (22:20)
[2023-08-03] MEDS ORDERED: IBUPROFEN 400MG TAB PO PRN (23:20)
[2023-08-03] MEDS ORDERED: guaiFENesin DM LIQ 10ML UD PO PRN (23:20)
[2023-08-03] MEDS: OMEPRAZOLE 20MG CAP PO SCH (23:57)
[2023-08-03] MEDS: KCL 20MEQ in NS 1000ML 1,000 ML IV SCH (23:58)
[2023-08-04] VITALS (9 sets, daily range): BP systolic 100–120; BP diastolic 58–77; TEMP 98.2–103.4; O2SAT 98–100
[2023-08-04] MEDS: ACETAMINOPHEN TAB 650MG DOSE (2X325MG) PO PRN (00:04)
[2023-08-04 07:54] LABS: HEMATOCRIT 30.1 % (36.0-47.0); HEMOGLOBIN 10.2 g/dl (12.0-15.5); MEAN CORPUSCULAR HEMOGLOBIN 31.9 pg (27.0-33.0); MEAN CORPUSCULAR HGB CONC 33.9 g/dl (32.0-36.5); MEAN CORPUSCULAR VOLUME 94.1 fl (80.0-96.0); PLATELET COUNT, AUTOMATED 161 10^3/uL (150-450); WHITE BLOOD COUNT 21.1 10^3/uL (4.0-10.0)
[2023-08-04 08:24] LABS: BLOOD UREA NITROGEN 6 MG/DL (9-23); CALCIUM LEVEL 8.1 MG/DL (8.5-10.1); CARBON DIOXIDE LEVEL 21 MMOL/L (20-31); CHLORIDE LEVEL 109 MMOL/L (98-107); CREATININE FOR GFR 0.63 MG/DL (0.55-1.30); GLOMERULAR FILTRATION RATE > 60.0 (>60); GLUCOSE, FASTING 127 MG/DL (60-100); POTASSIUM SERUM 3.6 MMOL/L (3.5-5.1); SODIUM LEVEL 139 MMOL/L (136-145)
[2023-08-04] MEDS: ENOXAPARIN 40MG/0.4ML SYRINGE (J1650 PER 10MG) SC SCH (09:05)
[2023-08-04] MEDS ORDERED: KETOROLAC 30 MG/ML 1ML VIAL IV PRN (15:15)
[2023-08-04] MEDS ORDERED: PIPERACILLIN/TAZOBACTAM SOD 4.5 GM in D5W MINI-BAG PLUS 50 ML IV SCH (15:20)
[2023-08-04] MEDS: KETOROLAC 30 MG/ML 1ML VIAL IV SCH (15:56)
[2023-08-04] MEDS: LevoFLOXacin IV 750 MG in IV 1 EA IV SCH (18:48)
[2023-08-04] MEDS ORDERED: AZITHROMYCIN 250MG TABLET PO SCH (21:00)
[2023-08-04] MEDS: ACETAMINOPHEN 500 MG TAB PO SCH (21:25)
[2023-08-04] MEDS ORDERED: cefTRIAXone SOD 1 GM in D5W MINI-BAG PLUS 50 ML IV SCH (22:00)
[2023-08-05] VITALS (10 sets, daily range): BP systolic 106–131; BP diastolic 56–79; TEMP 98–103.1; O2SAT 98–100
[2023-08-05 06:34] LABS: HEMOGLOBIN 10.3 g/dl (12.0-15.5); MEAN CORPUSCULAR HEMOGLOBIN 32.6 pg (27.0-33.0); MEAN CORPUSCULAR HGB CONC 34.3 g/dl (32.0-36.5); MEAN CORPUSCULAR VOLUME 94.9 fl (80.0-96.0); PLATELET COUNT, AUTOMATED 177 10^3/uL (150-450); RED BLOOD COUNT 3.16 10^6/uL (4.00-5.40); WHITE BLOOD COUNT 21.1 10^3/uL (4.0-10.0)
[2023-08-05 06:54] LABS: BLOOD UREA NITROGEN < 5 MG/DL (9-23); CALCIUM LEVEL 8.5 MG/DL (8.5-10.1); CARBON DIOXIDE LEVEL 23 MMOL/L (20-31); CHLORIDE LEVEL 111 MMOL/L (98-107); GLOMERULAR FILTRATION RATE > 60.0 (>60); GLUCOSE, FASTING 98 MG/DL (60-100); SODIUM LEVEL 141 MMOL/L (136-145)
[2023-08-05 07:17] LABS: ATYPICAL LYMPH 1 % (0-5); LYMPHOCYTES 10 % (16-44); MONOCYTES 3 % (0-5); NEUTROPHILS 73 % (28-66)
[2023-08-05 07:20] LABS: PLATELET ESTIMATE NORMAL (NORMAL)
[2023-08-05] MEDS: IBUPROFEN 400MG TAB PO PRN (15:16)
[2023-08-05] MEDS: NS 1,000 ML IV SCH (15:18)
[2023-08-06] VITALS: BP 117/68; TEMP 98.2; O2SAT 98
[2023-08-06 04:00] VITALS: BP 117/57; TEMP 99.5; O2SAT 99
[2023-08-06 05:54] LABS: BASO % 0.3 % (0.0-1.0); EOS # 0.1 10^3/uL (0.0-0.5); EOS % 0.4 % (0.0-3.0); HEMATOCRIT 29.3 % (36.0-47.0); LYMPH % 14.1 % (24.0-44.0); MEAN CORPUSCULAR HEMOGLOBIN 31.6 pg (27.0-33.0); MEAN CORPUSCULAR HGB CONC 34.1 g/dl (32.0-36.5); MEAN CORPUSCULAR VOLUME 92.7 fl (80.0-96.0); MONO # 1.1 10^3/uL (0.0-0.8); MONO % 7.5 % (2.0-8.0); NEUTROPHILS # 10.8 10^3/uL (1.5-8.5); NEUTROPHILS % 76.6 % (36.0-66.0); PLATELET COUNT, AUTOMATED 186 10^3/uL (150-450); RED BLOOD COUNT 3.16 10^6/uL (4.00-5.40); WHITE BLOOD COUNT 14.1 10^3/uL (4.0-10.0)
[2023-08-06 10:17] VITALS: BP 129/74; TEMP 98.2; O2SAT 99
[2023-08-06] MEDS ORDERED: LEVO1TAB40 PO (10:52)
[2023-08-06] MEDS: LevoFLOXacin 750 MG TABLET PO ONE (12:34)
[2023-08-06] MEDS ORDERED: LevoFLOXacin 750 MG TABLET PO SCH (20:00)
[2023-08-07 15:08] LABS: BODY FLUID CULTURE Not indicated. (.); LEGIONELLA ANTIGEN URINE Negative (Negative); ORGANISM ID Not indicated. (.); SPECIMEN SOURCE Urine (.); URINE STREP PNEUMONIAE ANTIGEN Negative (Negative)
== END 2023-08-06 12:42 | disposition home or self-care (01) ==
LOC: M ED 17:39 → EDBD 17:39 → M ED INP 23:12 → ENRESERV 08-04 00:27 → M MS4PR 08-04 01:15
PROVIDERS: ADMIT Preventive Medicine Undersea and Hyperbaric Medicine; ATTEND Internal Medicine
DX: J18.9 Pneumonia, unspecified organism (principal); A41.9 Sepsis, unspecified organism; K21.9 Gastro-esophageal reflux disease without esophagitis; F17.200 Nicotine dependence, unspecified, uncomplicated; Z79.899 Other long term (current) drug therapy
CPT/HCPCS: 71046; 71275; 80048; 82550; 82553; 83605; 84145; 84703; 85025; 85027; 85610; 85730; 87040; 87070; 87205; 87389; 87449; 87486; 87581; 87633; 87641; 87798; 87899; 93005; 93041; 94760; 96361; 96365; 96366; 96367; 96372; 96375; 96376; 99285; J0696; J1650; J1885; J1956; Q9967

== ENCOUNTER → 2023-08-24 | Outpatient (CLI) | payer OTHER ==
[~2023-08-24] MED LIST changes: +LEVO1TAB40 PO; +OMEP-173 PO
== END ==
LOC: M PLAIMG 11:07
PROVIDERS: ATTEND Nurse Practitioner Family
DX: J18.9 Pneumonia, unspecified organism (principal)

== ENCOUNTER → 2023-10-15 | Outpatient (REF) | payer OTHER ==
[~2023-10-15] MED LIST changes: +ONDA-282 PO; -ONDA4TAB6 PO
[2023-10-15 18:16] LABS: MAGNESIUM LEVEL 2.2 MG/DL (1.8-2.4)
[2023-10-15 18:20] LABS: FOLATE 23.4 NG/ML (>5.4)
== END ==
LOC: M LAB REF 17:18
PROVIDERS: ATTEND Nurse Practitioner Family
DX: R19.7 Diarrhea, unspecified (principal)

== ENCOUNTER → 2023-12-05 | Outpatient (CLI) | payer OTHER, MEDICAID | LOC: M LAB 09:59 | PROVIDERS: ATTEND Nurse Practitioner Family | DX: R19.7 Diarrhea, unspecified (principal); R63.4 Abnormal weight loss ==

== ENCOUNTER 2024-02-05 10:06 | Day surgery (SDC) | payer OTHER ==
[~2024-02-05] VITALS: Ht 152.4 cm; Wt 50.0 kg
[~2024-02-05 10:06] MED LIST changes: +propofoL 200 MG/20 ML VIAL As Ordered ONE
[2024-02-05] MEDS: NS 250 ML IV ONE (11:28)
[2024-02-05] MEDS ORDERED: LIDOCAINE 2% 100MG/5ML SDV (FOR ANES.) As Ordered ONE (12:21)
[2024-02-05 12:50] VITALS: TEMP 99
[2024-02-05 13:07] VITALS: BP 105/55; O2SAT 100
== END 2024-02-05 13:17 | disposition home or self-care (01) ==
LOC: M OPP 10:06
PROVIDERS: ATTEND Internal Medicine Gastroenterology
DX: R10.32 Left lower quadrant pain (principal); R19.7 Diarrhea, unspecified; R10.13 Epigastric pain; F17.210 Nicotine dependence, cigarettes, uncomplicated; Z88.1 Allergy status to other antibiotic agents; Z80.0 Family history of malignant neoplasm of digestive organs

== ENCOUNTER → 2024-03-18 | Outpatient (REF) | payer OTHER, MEDICAID ==
[~2024-03-18] MED LIST changes: -propofoL 200 MG/20 ML VIAL As Ordered ONE
== END ==
LOC: M LAB REF 12:41
PROVIDERS: ATTEND Physician Assistant
DX: R35.89 Other polyuria (principal)

== ENCOUNTER 2024-04-04 11:24 | Emergency (ER) | payer MEDICAID, OTHER ==
[~2024-04-04] VITALS: Ht 152.4 cm; Wt 51.8 kg
[2024-04-04] MEDS ORDERED: DICY-61 (12:02)
[2024-04-04 13:46] LABS: BASO % 0.8 % (0.0-1.0); EOS # 0.1 10^3/uL (0.0-0.5); HEMATOCRIT 34.4 % (36.0-47.0); HEMOGLOBIN 11.6 g/dl (12.0-15.5); LYMPH # 1.7 10^3/uL (1.5-5.0); LYMPH % 34.7 % (24.0-44.0); MEAN CORPUSCULAR HEMOGLOBIN 32.8 pg (27.0-33.0); MEAN CORPUSCULAR HGB CONC 33.7 g/dl (32.0-36.5); MEAN CORPUSCULAR VOLUME 97.2 fl (80.0-96.0); MONO # 0.4 10^3/uL (0.0-0.8); MONO % 8.6 % (2.0-8.0); NEUTROPHILS # 2.7 10^3/uL (1.5-8.5); NEUTROPHILS % 54.7 % (36.0-66.0); PLATELET COUNT, AUTOMATED 191 10^3/uL (150-450); RED BLOOD COUNT 3.54 10^6/uL (4.00-5.40); WHITE BLOOD COUNT 4.9 10^3/uL (4.0-10.0)
[2024-04-04 14:11] LABS: AMPHETAMINES LEVEL URINE NEGATIVE (NEGATIVE)
[2024-04-04 14:12] LABS: BARBITURATES URINE NEGATIVE (NEGATIVE); BENZODIAZEPINES URINE NEGATIVE (NEGATIVE); CANNABINOIDS URINE NEGATIVE (NEGATIVE); COCAINE METABOLITE URINE NEGATIVE (NEGATIVE); METHADONE URINE NEGATIVE (NEGATIVE); OPIATES URINE NEGATIVE (NEGATIVE); PHENCYCLIDINE URINE NEGATIVE (NEGATIVE)
[2024-04-04 14:13] LABS: HCG, SERUM QUALITATIVE NEGATIVE (NEGATIVE)
[2024-04-04 14:15] LABS: BLOOD UREA NITROGEN 13 MG/DL (9-23); CALCIUM LEVEL 9.3 MG/DL (8.5-10.1); CARBON DIOXIDE LEVEL 26 MMOL/L (20-31); CHLORIDE LEVEL 110 MMOL/L (98-107); CREATININE FOR GFR 0.71 MG/DL (0.55-1.30); GLOMERULAR FILTRATION RATE > 60.0 (>60); GLUCOSE, FASTING 80 MG/DL (60-100); MAGNESIUM LEVEL 2.1 MG/DL (1.8-2.4); POTASSIUM SERUM 4.2 MMOL/L (3.5-5.1); SODIUM LEVEL 142 MMOL/L (136-145)
[2024-04-04 14:17] LABS: FREE T4 1.32 NG/DL (0.89-1.76); THYROID STIMULATING HORMONE 0.664 uIU/ML (0.55-4.78)
[2024-04-04 14:30] VITALS: BP 99/59; O2SAT 100
[2024-04-04] MEDS: ACETAMINOPHEN 325 MG TAB PO ONE (14:34)
[2024-04-04] MEDS ORDERED: HOLTER MONITOR XX (14:47)
[2024-04-04 14:50] VITALS: TEMP 99
== END 2024-04-04 14:52 | disposition home or self-care (01) ==
LOC: M ED 11:24 → EDBD 11:24 → M ED 14:52
DX: R00.2 Palpitations (principal); K58.9 Irritable bowel syndrome, unspecified; F17.200 Nicotine dependence, unspecified, uncomplicated; Z88.1 Allergy status to other antibiotic agents; Z79.899 Other long term (current) drug therapy

== ENCOUNTER 2024-04-09 10:35 | Emergency (ER) | payer OTHER ==
[~2024-04-09] VITALS: Ht 152.4 cm; Wt 52.3 kg
[~2024-04-09 10:35] MED LIST changes: +DICY-61; +HOLTER MONITOR XX
[2024-04-09 11:57] LABS: BASO % 0.6 % (0.0-1.0); EOS % 0.4 % (0.0-3.0); HEMATOCRIT 37.3 % (36.0-47.0); HEMOGLOBIN 12.6 g/dl (12.0-15.5); LYMPH # 1.8 10^3/uL (1.5-5.0); LYMPH % 34.5 % (24.0-44.0); MEAN CORPUSCULAR HEMOGLOBIN 32.2 pg (27.0-33.0); MEAN CORPUSCULAR HGB CONC 33.8 g/dl (32.0-36.5); MEAN CORPUSCULAR VOLUME 95.4 fl (80.0-96.0); MONO # 0.4 10^3/uL (0.0-0.8); MONO % 7.6 % (2.0-8.0); NEUTROPHILS % 56.5 % (36.0-66.0); PLATELET COUNT, AUTOMATED 229 10^3/uL (150-450); RED BLOOD COUNT 3.91 10^6/uL (4.00-5.40); WHITE BLOOD COUNT 5.3 10^3/uL (4.0-10.0)
[2024-04-09 12:25] LABS: BLOOD UREA NITROGEN 14 MG/DL (9-23); CARBON DIOXIDE LEVEL 26 MMOL/L (20-31); CHLORIDE LEVEL 105 MMOL/L (98-107); CK-MB VALUE MASS < 1.0 NG/ML (<3.6); CREATININE FOR GFR 0.68 MG/DL (0.55-1.30); GLOMERULAR FILTRATION RATE > 60.0 (>60); GLUCOSE, FASTING 90 MG/DL (60-100); MAGNESIUM LEVEL 2.2 MG/DL (1.8-2.4); SODIUM LEVEL 141 MMOL/L (136-145)
[2024-04-09 12:28] LABS: HCG, SERUM QUALITATIVE NEGATIVE (NEGATIVE)
[2024-04-09 12:29] LABS: CPK CREATINE PHOSPHOKINASE 61 U/L (34-145); MB/CK RELATIVE INDEX 1.63 (< OR =4)
[2024-04-09] MEDS: MECLIZINE 25 MG TABLET PO ONE (14:14)
[2024-04-09 14:17] LABS: FREE T4 1.35 NG/DL (0.89-1.76); THYROID STIMULATING HORMONE 1.195 uIU/ML (0.55-4.78)
[2024-04-09] MEDS ORDERED: MECL-209 PO (15:01)
[2024-04-09 15:38] VITALS: BP 115/79; TEMP 99.1; O2SAT 100
== END 2024-04-09 15:44 | disposition home or self-care (01) ==
LOC: M ED 10:35
DX: R07.9 Chest pain, unspecified (principal); H81.4 Vertigo of central origin; R00.0 Tachycardia, unspecified; K21.9 Gastro-esophageal reflux disease without esophagitis; F17.200 Nicotine dependence, unspecified, uncomplicated; F10.10 Alcohol abuse, uncomplicated; Z88.1 Allergy status to other antibiotic agents; Z79.899 Other long term (current) drug therapy

== ENCOUNTER → 2024-04-29 | Outpatient (CLI) | payer OTHER ==
[~2024-04-29] MED LIST changes: +FAMO1TAB11; +HYDR-643; +MECL-209 PO; +ZOLO100T
== END ==
LOC: M EKG 13:55
PROVIDERS: ATTEND Nurse Practitioner Family
DX: R00.2 Palpitations (principal); Z53.9 Procedure and treatment not carried out, unspecified reason

== ENCOUNTER 2024-04-30 10:16 | Emergency (ER) | payer OTHER ==
[~2024-04-30] VITALS: Ht 152.4 cm; Wt 52.6 kg
[~2024-04-30 10:16] MED LIST changes: -FAMO1TAB11; -HYDR-643; -ZOLO100T
[2024-04-30] MEDS ORDERED: FAMO1TAB11 (10:50)
[2024-04-30] MEDS ORDERED: ZOLO100T (10:50)
[2024-04-30] MEDS ORDERED: HYDR-643 (10:50)
[2024-04-30] MEDS: MECLIZINE 25 MG TABLET PO ONE (11:44)
[2024-04-30 12:30] VITALS: BP 116/75; TEMP 98.3
[2024-04-30 12:31] VITALS: O2SAT 99
== END 2024-04-30 12:44 | disposition home or self-care (01) ==
LOC: M ED 10:16 → EDBD 10:16 → M ED 12:44
DX: H81.4 Vertigo of central origin (principal); R68.89 Other general symptoms and signs; R00.0 Tachycardia, unspecified; F41.9 Anxiety disorder, unspecified; F32.A Depression, unspecified; F17.200 Nicotine dependence, unspecified, uncomplicated; F10.10 Alcohol abuse, uncomplicated; Z88.1 Allergy status to other antibiotic agents; Z79.899 Other long term (current) drug therapy

== ENCOUNTER → 2024-07-08 | Outpatient (REF) | payer OTHER ==
[~2024-07-08] MED LIST changes: +FAMO1TAB11; +HYDR-643; +ZOLO100T
[2024-07-11 14:18] LABS: HPV APTIMA Not Detected (Not Detected)
== END ==
LOC: M LAB REF 17:53
PROVIDERS: ATTEND Nurse Practitioner Family
DX: Z12.4 Encounter for screening for malignant neoplasm of cervix (principal)

== ENCOUNTER → 2025-01-12 | Outpatient (CLI) | payer OTHER ==
[~2025-01-12] MED LIST changes: -IBUP-1022 PO; +IBUP600T42 PO
== END ==
LOC: M RAD 09:48
PROVIDERS: ATTEND Physician Assistant
DX: M25.531 Pain in right wrist (principal)

== ENCOUNTER → 2025-01-13 | Outpatient (CLI) | payer OTHER | LOC: M SOG 07:29 | PROVIDERS: ATTEND Physician Assistant | DX: Z53.9 Procedure and treatment not carried out, unspecified reason (principal) ==

== ENCOUNTER 2025-02-23 22:12 | Emergency (ER) | payer OTHER ==
[~2025-02-23] VITALS: Ht 152.4 cm; Wt 68.2 kg
[~2025-02-23 22:12] MED LIST changes: -ZOLO100T; +ZOLO100T PO
[2025-02-24 00:14] LABS: AMPHETAMINES LEVEL URINE NEGATIVE (NEGATIVE); BARBITURATES URINE NEGATIVE (NEGATIVE); BENZODIAZEPINES URINE NEGATIVE (NEGATIVE); CANNABINOIDS URINE NEGATIVE (NEGATIVE); COCAINE METABOLITE URINE NEGATIVE (NEGATIVE); METHADONE URINE NEGATIVE (NEGATIVE); OPIATES URINE NEGATIVE (NEGATIVE); PHENCYCLIDINE URINE NEGATIVE (NEGATIVE)
[2025-02-24 00:16] LABS: ETHYL ALCOHOL (ETHANOL) 0.235 % (0.000-0.010)
[2025-02-24 00:17] LABS: HCG, SERUM QUALITATIVE NEGATIVE (NEGATIVE)
[2025-02-24 00:18] LABS: ALT/SGPT 19 U/L (7.0-40); AST/SGOT 29 U/L (<34); CALCIUM LEVEL 9.5 MG/DL (8.5-10.1); CARBON DIOXIDE LEVEL 23 MMOL/L (20-31); CHLORIDE LEVEL 110 MMOL/L (98-107); CREATININE FOR GFR 0.60 MG/DL (0.55-1.30); GLOMERULAR FILTRATION RATE > 90.0 (>60); POTASSIUM SERUM 3.3 MMOL/L (3.5-5.1); SALICYLATE LEVEL < 3.0 MG/DL (<30); SODIUM LEVEL 146 MMOL/L (136-145)
[2025-02-24 00:40] LABS: PLATELET COUNT, AUTOMATED 252 10^3/uL (150-450)
[2025-02-24] MEDS ORDERED: MUCI600T31 PO (11:01)
[2025-02-24] MEDS ORDERED: HOME MED LIST COMPLETE! XX SCH (11:05)
[2025-02-24 12:54] VITALS: BP 106/66; TEMP 98.6; O2SAT 99
== END 2025-02-24 13:10 | disposition home or self-care (01) ==
LOC: M ED 22:12
DX: F10.14 Alcohol abuse with alcohol-induced mood disorder (principal); F12.10 Cannabis abuse, uncomplicated; K21.9 Gastro-esophageal reflux disease without esophagitis; F41.9 Anxiety disorder, unspecified; Z79.899 Other long term (current) drug therapy; Z88.1 Allergy status to other antibiotic agents